=== PATIENT | female | born 1960 | race Caucasian/White ===

== ENCOUNTER 2021-09-01 12:35 | Inpatient (IN) | payer MEDICARE, MEDICAID, SELFPAY ==
[2021-09-01] VITALS (10 sets, daily range): BP systolic 96–134; BP diastolic 65–90; PULSE 80–137; RESP 13–22; TEMP 35.8–37.2; O2SAT 96–99; BMI 38.9; BMI 38.8
--- NOTE | 2021-09-01 13:07 | EKG12_ITS ---
Test Reason : HR Blood Pressure : / mmHG Vent. Rate : 089 BPM Atrial Rate : 267 BPM P-R Int : 000 ms QRS Dur : 072 ms QT Int : 346 ms P-R-T Axes : 263 046 037 degrees QTc Int : 420 ms Atrial flutter with variable A-V block Nonspecific ST and T wave abnormality Abnormal ECG Confirmed by MARISSA SAAVEDRA, DAISY ([id number]), state editor FLACO SHELDON ([id number]) on 09/04/2021 11:11:17 AM Referred By: DAMARI Confirmed By:DAISY ANN MD
--- NOTE | 2021-09-01 13:08 | EDS_ITS ---
HPI History of Present Illness Chief Complaint: Palpitations Narrative Narrative: Patient presents with palpitations that started last night, her heart rate was up to 160 at home. She has a history of atrial fibrillation although it is paroxysmal A. fib, she is not able to be anticoagulated due to gastric ulcers and severe bleeding. She is on a beta-luis miguel and has taken it every day, her heart rate has been in the 80s and 90s at baseline and just noticed that it was faster today. She has no chest pain. She has no fevers or chills. No recent cough or congestion or upper respiratory symptoms. [facility] Medical History Chronic hypoxemic respiratory failure Emphysema lung HLD (hyperlipidemia) HTN (hypertension) Iron deficiency anemia PAUL (obstructive sleep apnea) Paroxysmal atrial fibrillation Type 2 diabetes mellitus Home Medications Lactobacillus rhamnosus GG 1 cap PO DAILY 09/01/21 [History Last Taken 08/31/21] acyclovir 400 mg PO DAILY 09/01/21 [History Last Taken 09/01/21] albuterol sulfate [Ventolin HFA] 2 puff INHALATION Q6H PRN 09/01/21 [History Last Taken 09/01/21] budesonide-formoterol 2 puff INHALATION BID 09/01/21 [History Last Taken 09/01/21] buspirone 15 mg PO BID 09/01/21 [History Last Taken 09/01/21] clonazepam 1 mg PO QHS 09/01/21 [History Last Taken 08/31/21] cyclobenzaprine 10 mg PO TID PRN 09/01/21 [History Last Taken 08/31/21] duloxetine 60 mg PO QHS 09/01/21 [History Last Taken 08/31/21] empagliflozin [Jardiance] 25 mg PO DAILY 09/01/21 [History Last Taken 09/01/21] furosemide 40 mg PO DAILY 09/01/21 [History Last Taken 09/01/21] lamotrigine [Lamictal] 200 mg PO DAILY 09/01/21 [History Last Taken 08/31/21] levothyroxine 75 mcg PO DAILY 09/01/21 [History Last Taken 09/01/21] metoprolol tartrate 12.5 mg PO BID 09/01/21 [History Last Taken 09/01/21] montelukast [Singulair] 10 mg PO QHS 09/01/21 [History Last Taken 08/31/21] pantoprazole [Protonix] 40 mg PO BID 09/01/21 [History Last Taken 09/01/21] prednisone 5 mg PO DAILY 09/01/21 [History Last Taken 09/01/21] roflumilast 500 mcg PO DAILY 09/01/21 [History Last Taken 09/01/21] rosuvastatin [Crestor] 20 mg PO DAILY 09/01/21 [History Last Taken 09/01/21] tiotropium bromide [Spiriva Respimat] 2 puff INHALATION DAILY 09/01/21 [History Last Taken 09/01/21] trazodone 100 mg PO QHS 09/01/21 [History Last Taken 08/31/21] Allergy/AdvReac Type Severity Reaction Status Date / Time doxycycline Allergy Rash Verified 09/01/21 12:41 morphine Allergy Itching Verified 09/01/21 12:41 sulfamethoxazole Allergy Rash Verified 09/01/21 12:41 [From Bactrim] trimethoprim [From Bactrim] Allergy Rash Verified 09/01/21 12:41 levofloxacin [From Levaquin] AdvReac NEEDS Verified 09/01/21 12:41 FOLLOW-UP Penicillins AdvReac Vomiting Verified 09/01/21 12:41 Social History Smoking Status: Unknown if ever smoked ROS ROS ED ROS Narrative Past medical history: Reviewed Medications: Reviewed Social history: Noncontributory Review of systems: All systems negative except as indicated General: No fever Eyes: No visual changes ENT: No upper airway congestion, normal voice Neck: No neck pain Cardiovascular: Palpitations Respiratory: Chronic shortness of breath, she is on home oxygen at 2 L and has not needed to change her settings. No new respiratory symptoms. Gastrointestinal: No abdominal pain, nausea vomiting or diarrhea Genitourinary: No dysuria Musculoskeletal: Denies myalgias no difficulty with ambulation Skin: No rash Neurological: No memory loss, confusion or any focal weakness Psych: No recent behavioral changes Hematologic: No easy bleeding or easy bruising EXAM Physical Exam Narrative Exam Narrative: Physical exam General: Well nourished, Well developed, No Acute Distress Head: Normocephalic, Atraumatic Eyes: Conjunctiva not pale ENT: Moist mucous membranes. No congestion seen. Neck: Supple, Nontender, No lymphadenopathy Cardiovascular: Irregular tachycardia no obvious murmur Respiratory: Coarse bilateral breath sounds. Abdomen: Soft, Nontender, Nondistended Back: Nontender, Normal Inspection. Negative for: CVA tenderness Extremities: Nontender, slight bilateral symmetric edema. Skin: Normal color, No rash Neurological: Alert, Normal Strength, Normal Sensation Psychological: Normal affect Const Vital Signs: 09/01/21 12:37 09/01/21 14:47 Temperature 96.5 F L Temperature Source Temporal Pulse Rate 137 H 133 H Respiratory Rate 19 H 22 H Blood Pressure 134/90 H 104/71 Blood Pressure Mean 104 82 Pulse Ox 97 Oxygen Delivery Method Nasal Cannula Nasal Cannula Oxygen Flow Rate (L/min) 4 MDM MDM MDM Narrative Medical decision making narrative: Patient has an unremarkable work-up, I am reluctant to put her on anticoagulants due to her prior significant GI bleeds, regardless I tried beta-blockade but she is now tachycardic again I will place her on Cardizem and a Cardizem drip and admit her Lab Data Labs: Laboratory Results - last 24 hr 09/01/21 09/01/21 13:11 13:11 WBC 12.0 H RBC 4.52 Hgb 12.3 Hct 41.5 MCV 91.8 MCH 27.2 MCHC 29.6 L RDW Std Deviation 49.4 H RDW Coeff of Naomie 14.6 Plt Count 412 MPV 8.2 Immature Gran % (Auto) 1.200 H Neut % (Auto) 70.3 H Lymph % (Auto) 17.9 L [place] % (Auto) 6.1 Eos % (Auto) 4.0 Baso % (Auto) 0.5 Absolute Neuts (auto) 8.5 H Absolute Lymphs (auto) 2.16 Nucleated RBC % 0 Sodium 141 Potassium 3.9 Chloride 101 Carbon Dioxide 35.0 H Anion Gap 5 BUN 11 Creatinine 1.05 H Estim Creat Clear Calc 42.99 Est GFR (MDRD) Af Amer 69 Est GFR (MDRD) Non-Af 57 L BUN/Creatinine Ratio 10.5 Glucose 201 H Calcium 9.4 Troponin I High Sens 24 Radiography Diagnostic Testing: Clinical Impression(s) from Imaging Studies Chest X-Ray 09/01/21 13:23 IMPRESSION: 1.3 cm x 0.8 cm nodule in the right midlung. Multiple healed right-sided rib fractures. Electronically Signed: Lucho Morataya MD at 13:57 EDT , Service support , Discharge Plan Triage Chief Complaint: Palpitations ED Provider: Sanford Borden Dx/Rx/DC Orders Clinical Impression: A-fib Prescriptions: No Action cyclobenzaprine 10 mg Tablet 10 mg PO TID PRN (Reason: Pain) RF: 0 furosemide 40 mg Tablet 40 mg PO DAILY RF: 0 lamotrigine [Lamictal] 200 mg Tablet 200 mg PO DAILY RF: 0 prednisone 5 mg Tablet 5 mg PO DAILY RF: 0 clonazepam 1 mg Tablet 1 mg PO QHS RF: 0 acyclovir 400 mg Tablet 400 mg PO DAILY RF: 0 trazodone 100 mg Tablet 100 mg PO QHS RF: 0 pantoprazole [Protonix] 40 mg Tablet,Delayed Release (Dr/Ec) 40 mg PO BID RF: 0 montelukast [Singulair] 10 mg Tablet 10 mg PO QHS RF: 0 buspirone 15 mg Tablet 15 mg PO BID RF: 0 metoprolol tartrate 25 mg Tablet 12.5 mg PO BID RF: 0 duloxetine 60 mg Capsule,Delayed Release(Dr/Ec) 60 mg PO QHS RF: 0 budesonide-formoterol 160-4.5 mcg/actuation Hfa Aerosol Inhaler 2 puff INHALATION BID RF: 0 roflumilast 500 mcg Tablet 500 mcg PO DAILY RF: 0 Spiriva Respimat 2.5 mcg/actuation Mist 2 puff INHALATION DAILY RF: 0 Lactobacillus rhamnosus GG 15 billion cell Capsule, Sprinkle 1 cap PO DAILY RF: 0 Jardiance 25 mg Tablet 25 mg PO DAILY RF: 0 albuterol sulfate [Ventolin HFA] 90 mcg/actuation Hfa Aerosol Inhaler 2 puff INHALATION Q6H PRN (Reason: COPD) RF: 0 levothyroxine 75 mcg Tablet 75 mcg PO DAILY RF: 0 rosuvastatin [Crestor] 20 mg Tablet 20 mg PO DAILY RF: 0 Referrals: MAMIE FALL [Other] Disposition Disposition: Acute Care Hospital [facility]
[2021-09-01 13:21] LABS: Absolute Lymphocyte Count 2.16 X10^3/uL (0.83-4.51); Absolute Neutrophil Count 8.5 X10^3/uL (2.0-7.7); Basophil# 0.06 X10^3/uL; Basophil% 0.5 % (0-1); Eosinophil# 0.48 X10^3/uL; Hematocrit 41.5 % (37-47); Hemoglobin 12.3 g/dL (12.0-15.0); Lymphocyte # 2.16 X10^3/ul (0.83-4.51); Lymphocyte % 17.9 % (19-41); Mean Corp Hgb Conc 29.6 g/dL (32-36); Mean Corpuscular Hgb 27.2 pg (27.0-32.0); Mean Corpuscular Volume 91.8 fL (81-99); Mean Platelet Vol. 8.2 fl (6.2-12.0); Monocyte# 0.74 X10^3/uL; Monocyte% 6.1 % (0-10); NRBC Flagged by Analyzer 0 % (0-5); Neutrophil # 8.45 X10^3/uL (2.7-7.7); Neutrophil % 70.3 % (47-70); Platelet Count 412 K/mm3 (150-450); RBC Distribution Width CV 14.6 % (11.6-14.6); RBC Distribution Width SD 49.4 fl (35.1-43.9); Red Blood Count 4.52 M/mm3 (4.2-5.4)
--- NOTE | 2021-09-01 13:23 | RAD_ITS ---
STUDY: X-RAY CHEST REASON FOR EXAM: Female, 61 years old. Chest pain TECHNIQUE: Single AP portable view of the chest. COMPARISON: None. FINDINGS: EKG electrodes are seen. There is a 1.3 cm x 0.8 cm nodule in the right mid lung. There is no demonstrated pleural abnormality. Normal size heart. Normal mediastinum and jd. Normal visualized pulmonary arteries. Normal visualized aortic arch and descending thoracic aorta. There are degenerative changes of the visualized thoracic spine. Healed multiple right-sided rib fractures. There is no demonstrated abnormality of the visualized soft tissue structures of the upper abdomen. RAD/Chest 1 View (Portable) IMPRESSION: 1.3 cm x 0.8 cm nodule in the right midlung. Multiple healed right-sided rib fractures. Electronically Signed: Lucho Morataya MD at 13:57 EDT , Service support ,
[2021-09-01] MEDS: Metoprolol Tartrate 5 MG/5 ML Vial IV ×3 (13:24→13:40)
[2021-09-01 13:39] LABS: Anion Gap 5 (5-15); BUN 11 mg/dL (7-18); BUN/Creat Ratio 10.5 RATIO (10-20); Calcium,Total 9.4 mg/dL (8.5-10.1); Chloride 101 mmol/L (98-107); Creatinine, Serum 1.05 mg/dL (0.55-1.02); EST Glomerular Filtration Rate 57 mL/min (>60); Est Glom Filt Rate - Afr Amer 69 mL/min (>60); Estimated Creatinine Clearance 42.99 ml/min; Glucose 201 mg/dL (74-106); Potassium 3.9 mmol/L (3.5-5.1); Sodium Level 141 mmol/L (136-145); Troponin-I HS 24 pg/mL (3.0-54.0)
--- NOTE | 2021-09-01 13:47 | ED.RN ---
1324: Lopressor 5mg ivp per order. 122/71, 1136 a-fib rvr 1332: Lopressor 5mg ivp per [place], 104/77 112, a-fib rvr 1340: Lopressor 5mg ivp per order, 120/68, 109, a-fib rvr 1345: 101/66, 95. 16; a-fib
--- NOTE | 2021-09-01 15:13 | HP.PCM.HOS_ITS ---
HPI - General General Date of Admission: 09/01/21 Date of Service: 09/01/21 Chief Complaint: Palpitations HPI Narrative The patient is a 61 y/o F w/ PMHx: Hypothyroidism, Anxiety and Depression, GERD, PAF, HTN, HLD, Chronic hypoxic respiratory failure (2L NC) w/ Chronic COPD, Diabetes mellitus type II, Chronic anemia/Fe Deficiency anemia, PAUL who presents to the [facility] ED on 09/01/21 with history of onset palpitations, sensation of increased heart rate starting the evening prior unfortunately unable to be anticoagulated secondary to history of significant GI bleed with gastric ulcers in the past, compliant with her metoprolol with onset concurrent generalized chest heaviness and sensation of dyspnea above her usual; however, when she she has checked her pulse oximeter and has been in her normal range and she is not required any increase in her oxygen chronic usage. Given it was not improving with her rate at home up to 160 she presented to ED for evaluation. Work-up in the ED included T 96.5, heart rate 137, BP 134/90, respiratory rate 19, 97% on room air, CBC with WBC 12, hemoglobin 12.3, platelet 412 with increased immature granulocytes with left shift, BMP with carbon dioxide 35, BUN/111/1.05, glucose 201, troponin high-sensitivity 24, chest x-ray 1.3 cm x 0.8 cm nodule in the right midlung, multiple healed right-sided rib fractures, EKG atrial fibrillation with RVR. Patient administered Cardizem bolus eventually placed on Cardizem drip. [facility] Medical History (Updated 09/01/21 @ 15:[address] Radha Noel MD) Chronic hypoxemic respiratory failure Emphysema lung History of arteriovenous malformation (AVM) HLD (hyperlipidemia) HTN (hypertension) Iron deficiency anemia PAUL (obstructive sleep apnea) Paroxysmal atrial fibrillation Type 2 diabetes mellitus Home Medications Lactobacillus rhamnosus GG 1 cap PO DAILY 09/01/21 [History Last Taken 08/31/21] acyclovir 400 mg PO DAILY 09/01/21 [History Last Taken 09/01/21] albuterol sulfate [Ventolin HFA] 2 puff INHALATION Q6H PRN 09/01/21 [History Last Taken 09/01/21] budesonide-formoterol 2 puff INHALATION BID 09/01/21 [History Last Taken 09/01/21] buspirone 15 mg PO BID 09/01/21 [History Last Taken 09/01/21] clonazepam 1 mg PO QHS 09/01/21 [History Last Taken 08/31/21] cyclobenzaprine 10 mg PO TID PRN 09/01/21 [History Last Taken 08/31/21] duloxetine 60 mg PO QHS 09/01/21 [History Last Taken 08/31/21] empagliflozin [Jardiance] 25 mg PO DAILY 09/01/21 [History Last Taken 09/01/21] furosemide 40 mg PO DAILY 09/01/21 [History Last Taken 09/01/21] lamotrigine [Lamictal] 200 mg PO DAILY 09/01/21 [History Last Taken 08/31/21] levothyroxine 75 mcg PO DAILY 09/01/21 [History Last Taken 09/01/21] metoprolol tartrate 12.5 mg PO BID 09/01/21 [History Last Taken 09/01/21] montelukast [Singulair] 10 mg PO QHS 09/01/21 [History Last Taken 08/31/21] pantoprazole [Protonix] 40 mg PO BID 09/01/21 [History Last Taken 09/01/21] prednisone 5 mg PO DAILY 09/01/21 [History Last Taken 09/01/21] roflumilast 500 mcg PO DAILY 09/01/21 [History Last Taken 09/01/21] rosuvastatin [Crestor] 20 mg PO DAILY 09/01/21 [History Last Taken 09/01/21] tiotropium bromide [Spiriva Respimat] 2 puff INHALATION DAILY 09/01/21 [History Last Taken 09/01/21] trazodone 100 mg PO QHS 09/01/21 [History Last Taken 08/31/21] Allergy/AdvReac Type Severity Reaction Status Date / Time doxycycline Allergy Rash Verified 09/01/21 12:41 morphine Allergy Itching Verified 09/01/21 12:41 sulfamethoxazole Allergy Rash Verified 09/01/21 12:41 [From Bactrim] trimethoprim [From Bactrim] Allergy Rash Verified 09/01/21 12:41 levofloxacin [From Levaquin] AdvReac NEEDS Verified 09/01/21 12:41 FOLLOW-UP Penicillins AdvReac Vomiting Verified 09/01/21 12:41 Family History (Updated 09/01/21 @ 15:[address] Radha Noel MD) Mother Heart disease CVA (cerebral vascular accident) Parkinsons disease Father CAD (coronary artery disease) Myocardial infarction COPD (chronic obstructive pulmonary disease) Surgical History (Updated 09/01/21 @ 15:[address] Radha Noel MD) S/P bilateral foot surgery S/P S/P hysterectomy S/P nasal surgery S/P tonsillectomy and adenoidectomy Social History (Updated 09/01/21 @ 15:[address] Radha Noel MD) household members: significant other Smoking Status: Former smoker how long ago did patient quit smoking: Quit 6-7 yrs prior, smoked 2.5 ppd x 30 years. alcohol intake: never substance use type: other details: Uses medical cannabis edibles. ROS ROS Narrative Admission Review of Systems: CONSTITUTIONAL: No weight loss, fever, chills, + weakness or fatigue. HEENT: Eyes: No visual loss, blurred vision, double vision or yellow sclerae. Ears, Nose, Throat: No hearing loss, sneezing, congestion, runny nose or sore throat. SKIN: No rash or itching, lesions, wounds. CARDIOVASCULAR: + Chest heaviness, No edema, orthopnea, syncopal events. RESPIRATORY: + Above baseline shortness of breath, chronic unchanged cough, No marked sputum, wheezing, hemoptysis. GASTROINTESTINAL: No anorexia, nausea, vomiting or diarrhea, abdominal pain, melena, BRBPR. GENITOURINARY: No dysuria, frequency, urgency or retention. NEUROLOGICAL: No headache, dizziness, syncope, paralysis, ataxia, numbness or tingling in the extremities, focal weakness, change in bowel or bladder control, seizure. MUSCULOSKELETAL: + muscle, back pain, joint pain or stiffness. HEMATOLOGIC: + anemia, bleeding or bruising. LYMPHATICS: No enlarged nodes. No history of splenectomy. PSYCHIATRIC: + history of depression or anxiety. ENDOCRINOLOGIC: No reports of sweating, cold or heat intolerance. No polyuria or polydipsia. ALLERGIES: + history of asthma, hives, eczema or rhinitis. Vital Signs Vital Signs Vital Signs: 09/01/21 12:37 09/01/21 14:47 Temperature 96.5 F L Temperature Source Temporal Pulse Rate 137 H 133 H Respiratory Rate 19 H 22 H Blood Pressure 134/90 H 104/71 Blood Pressure Mean 104 82 Pulse Ox 97 Oxygen Delivery Method Nasal Cannula Nasal Cannula Oxygen Flow Rate (L/min) 4 Weight Weight: 206 lb Body Mass Index (BMI) 38.9 Physical Exam Narrative Physical Examination: General: Awake, alert, oriented x 3 and cooperative, seated upright in the ED bed in no apparent distress, still reporting some mild dyspnea sensation and chest heaviness however rate is currently up, awaiting for Cardizem drip initiation. Skin: Normal color, normal turgor, no icterus, no cyanosis. HEENT: AT/NC, EOMI, PERRLA, mildly dry MM, no carotid bruits or JVD noted; however, thickened neck makes examination difficult. Lungs: Usually diminished, greater bases, no evidence of any respiratory distress, no rales, ronchi or wheezing. Heart: Irregular irregular; no gallop, rub audible. Abdomen: Soft, obese, NTTP, ND, distant mildly hyperactive BS, no obvious ev idence of HSM; however, habitus makes examination difficult. Extremities: No cyanosis, clubbing, or edema. Neurological: Patient awake, alert, oriented as noted, cognitive function intact; pupils equally reactive to light and accommodation, cranial nerves II- XII grossly normal, moving all 4 extremities, no focal deficits, strength moderately global decrease secondary to acute presentation. Psychiatric: Affect appears mildly fatigued, no acute evidence of depressive or anxiety feelings. Results Lab / Micro Data Result Diagrams: 09/01/21 13:11 09/01/21 13:11 Labs: Laboratory Results - last 24 hr 09/01/21 13:11: WBC 12.0 H, RBC 4.52, Hgb 12.3, Hct 41.5, MCV 91.8, MCH 27.2, MCHC 29.6 L, RDW Std Deviation 49.4 H, RDW Coeff of Naomie 14.6, Plt Count 412, MPV 8.2, Immature Gran % (Auto) 1.200 H, Neut % (Auto) 70.3 H, Lymph % (Auto) 17.9 L , [place] % (Auto) 6.1, Eos % (Auto) 4.0, Baso % (Auto) 0.5, Absolute Neuts (auto) 8.5 H, Absolute Lymphs (auto) 2.16, Nucleated RBC % 0 09/01/21 13:11: Sodium 141, Potassium 3.9, Chloride 101, Carbon Dioxide 35.0 H, Anion Gap 5, BUN 11, Creatinine 1.05 H, Estim Creat Clear Calc 42.99, Est GFR (MDRD) Af Amer 69, Est GFR (MDRD) Non-Af 57 L, BUN/Creatinine Ratio 10.5, Glucose 201 H, Calcium 9.4, Troponin I High Sens 24 Radiology Impression Chest X-Ray 09/01/21 13:23 IMPRESSION: 1.3 cm x 0.8 cm nodule in the right midlung. Multiple healed right-sided rib fractures. Electronically Signed: Lucho Morataya MD at 13:57 EDT , Service support , Assessment & Plan Assessment/Plan (1) Atrial fibrillation with RVR: PLAN: The patient is a 61 y/o F w/ PMHx: Hypothyroidism, Anxiety and Depression, GERD, PAF, HTN, HLD, Chronic hypoxic respiratory failure (2L NC) w/ Chronic COPD, Diabetes mellitus type II, Chronic anemia/Fe Deficiency anemia, PAUL, Former tobacco cessation who presents to the [facility] ED on 09/01/21 with history of onset palpitations, sensation of increased heart rate starting the evening prior unfortunately unable to be anticoagulated secondary to history of significant GI bleed with gastric ulcers in the past, compliant with her metoprolol with associated chest heaviness and dyspnea. 1. Paroxsymal atrial fibrillation with RVR w/ chest heaviness, dyspnea sensation: EKG in ED w/ atrial fibrillation w/ RVR. Will admit to PCU, maintain on telemetry, obtain cardiac enzyme serial set, obtain magnesium level, obtain ECHO, obtain TSH level. Patient has been unable to be anticoagulated in the past secondary to severe GI bleeding with gastric ulcer history. We will continue Cardizem drip with increase of her metoprolol as currently low dose, al though may need to adjust it further. Pending patient response may need to consider cardiology involvement. 2. Incidental right mid lung nodule: Chest x-ray with 1.3 cm x 0.8 cm nodule right midlung, will need follow-up imaging given underlying history. 3. Chronic COPD with chronic hypoxic respiratory failure (2L NC) with allergic rhinitis: Will maintain on home oxygen supplementation, will continue home inhaler, PRN albuterol, HOB, IS parameters, continue home Singulair regimen as well as Roflumilast. 4. Diabetes mellitus type II: Hold oral home regimen, continue home insulin regimen, ADA diet, accu checks w/ ISS. 5. Hypertension: Continue home regimen including Lasix, metoprolol with hold parameters, PRN hydralazine. 6. Hyperlipidemia: We will continue patient on statin therapy. 7. Anxiety and depression/possible bipolar disorder: We will continue patient home clonazepam, duloxetine, Lamictal. 8. Hypothyroidism: Continue home synthroid regimen, TSH and FT4 pending. 9. 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 10. Chronic anemia/Fe Deficiency anemia: Admission Hgb 12.3, no comparison level available, not on supplementation from current list, trend. 11. PAUL: Unable to tolerate, hasnt used for years. 12. Former tobacco use: Encourage continued tobacco cessation. 13. DVT prophylaxis: SCDs, given severity of GI bleed history, current on chronic steroids with GERD w/ gastric ulcers will defer chemoprophylaxis. Charges/Coding Visit Charges Inpatient E&M: 52993 Init Hosp L3
--- NOTE | 2021-09-01 15:47 | ED.RN ---
cardizem bolus and drip0 held per dr. jules for heart rate in the 90's and bp of 94/76.
--- NOTE | 2021-09-01 16:47 | ECHOCS_ITS ---
Reason For Study: PAF Procedure This was a 2D Doppler, Color Flow transthoracic echocardiogram. The study was technically difficult. Contrast injection was performed. Exam performed portable in patient room. Left Ventricle Based upon the 2D echocardiographic and contrast enhanced images obtained there appears to be grossly normal left ventricular size, wall motion, and systolic function. The estimated ejection fraction is 55 %. No evidence for diastolic dysfunction. Right Ventricle Normal RV size. Normal systolic function. Atria Normal left atrium. Normal right atrium. No doppler evidence for ASD. Mitral Valve There is no mitral annular calcification. Normal mitral valve. Trivial mitral valve insufficiency. Tricuspid Valve Normal tricuspid valve. Mild tricuspid valve insufficiency. Right ventricular systolic pressure estimated to be 28 mmHg. Aortic Valve Trisinus/trileaflet aortic valve. Normal aortic valve. Pulmonic Valve The pulmonic valve is not well visualized. Great Vessels Normal sized aortic root. Pericardium/Pleural No pericardial effusion. Medication Diluted definity 5ml given slow IV push to enhance endocardial definition. MMode/2D Measurements & Calculations LVIDd: 4.9 cm IVSd: 0.89 cm Ao root diam: 3.0 cm LVIDs: 3.6 cm LVPWd: 0.86 cm RVDd: 3.3 cm FS: 26.6 % LAV(MOD-bp): 45.8 ml LVAd ap4: 29.1 cm2 SV(MOD-sp4): 60.9 ml LAV(MOD-bp) Indexed: 23.9 ml/m2 LVLd ap4: 7.5 cm LAV(MOD-sp2): 48.3 ml EDV(MOD-sp4): 92.7 ml LAV(MOD-sp4): 39.4 ml EDV(sp4-el): 95.7 ml LVAs ap4: 15.0 cm2 LVLs ap4: 6.0 cm ESV(MOD-sp4): 31.8 ml ESV(sp4-el): 31.7 ml EF(MOD-sp4): 65.7 % EF(sp4-el): 66.9 % SV(sp4-el): 64.0 ml LA A4 area: 16.3 cm2 LA dimension(2D): 4.0 cm RA A4 area: 18.8 cm2 Doppler Measurements & Calculations MV E max eddie: 62.5 cm/sec Lat Peak E' Eddie: 9.0 cm/sec Med Peak E' Eddie: 6.4 cm/sec MV A max eddie: 37.8 cm/sec E/E' lat: 6.9 E/E' med: 9.8 MV E/A: 1.7 Ao V2 max: 136.6 cm/sec LV V1 max: 89.9 cm/sec PA V2 max: 80.0 cm/sec Ao max P.5 mmHg LV V1 max P.2 mmHg Ao V2 mean: 96.2 cm/sec Ao mean P.0 mmHg Ao V2 VTI: 26.1 cm TR max eddie: 248.5 cm/sec TR max P.7 mmHg ECHO/Echo Complete W/ Contrast Interpretation Summary The study was technically difficult. Contrast injection was performed. Based upon the 2D echocardiographic and contrast enhanced images obtained there appears to be grossly normal left ventricular size, wall motion, and systolic function. The estimated ejection fraction is 55 %. Trivial mitral valve insufficiency. Mild tricuspid valve insufficiency. Right ventricular systolic pressure estimated to be 28 mmHg. No evidence for diastolic dysfunction. Ordering Physician: Radha Noel Performed By: Daniela Morejon, ELIAS, RVT
[2021-09-01 16:56] LABS: Magnesium 2.5 mg/dL (1.6-2.6)
[2021-09-01 17:25] LABS: Bedside Glucose 116 mg/dL (70-110)
--- NOTE | 2021-09-01 17:26 | EKG12_ITS ---
Test Reason : WORK UP Blood Pressure : / mmHG Vent. Rate : 087 BPM Atrial Rate : 278 BPM P-R Int : 000 ms QRS Dur : 076 ms QT Int : 404 ms P-R-T Axes : 000 055 253 degrees QTc Int : 486 ms Atrial flutter with variable A-V block Nonspecific ST and T wave abnormality Prolonged QT Abnormal ECG Confirmed by MARISSA SAAVEDRA, DAISY ([id number]), features editor FLACO SHELDON ([id number]) on 09/04/2021 11:13:25 AM Referred By: GOSIA Confirmed By:DAISY ANN MD
[2021-09-01] MEDS: CLARIFY ORDER NOTE (17:57)
[2021-09-01] MEDS: Metoprolol Tartrate 25 MG Tablet PO ×2 (17:57→22:14)
--- NOTE | 2021-09-01 18:06 | EKG12_ITS ---
Test Reason : RHYTHM CHANGE Blood Pressure : / mmHG Vent. Rate : 091 BPM Atrial Rate : 091 BPM P-R Int : 110 ms QRS Dur : 080 ms QT Int : 340 ms P-R-T Axes : 059 059 073 degrees QTc Int : 418 ms Sinus rhythm with short WA Nonspecific ST and T wave abnormality Abnormal ECG Confirmed by MARISSA SAAVEDRA, DAISY ([id number]), fashion editor FLACO SHELDON ([id number]) on 09/05/2021 8:54:37 AM Referred By: CHRIS Confirmed By:DAISY ANN MD
[2021-09-01 18:21] LABS: Troponin-I HS 25 pg/mL (3.0-54.0)
[2021-09-01 21:54] LABS: Troponin-I HS 20 pg/mL (3.0-54.0)
[2021-09-01] MEDS: traZODone 100 MG Tablet PO (22:04)
[2021-09-01] MEDS: busPIRone 15 MG TABLET PO (22:05)
[2021-09-01] MEDS: DULoxetine Hcl 60 MG Capsule PO (22:05)
[2021-09-01] MEDS: Atorvastatin Calcium 40 MG Tablet PO (22:11)
[2021-09-01] MEDS: Montelukast 10 MG Tablet PO (22:15)
[2021-09-01] MEDS: Pantoprazole Sodium 40 MG Tablet PO (22:15)
[2021-09-01] MEDS: clonazePAM 1 MG Tablet PO (22:45)
[2021-09-01] MEDS: cycloBENZAPRine HCl 10 MG Tablet PO (23:24)
[2021-09-01 23:26] LABS: Bedside Glucose 111 mg/dL (70-110)
[2021-09-02] VITALS (9 sets, daily range): BP systolic 96–121; BP diastolic 64–74; PULSE 80–108; RESP 18–20; TEMP 36–37.1; O2SAT 96–97
[2021-09-02] MEDS: Levothyroxine 75 MCG Tablet PO (05:49)
--- NOTE | 2021-09-02 05:55 | EKG12_ITS ---
Test Reason : AM EKG Blood Pressure : / mmHG Vent. Rate : 082 BPM Atrial Rate : 082 BPM P-R Int : 110 ms QRS Dur : 086 ms QT Int : 364 ms P-R-T Axes : 045 053 074 degrees QTc Int : 425 ms Sinus rhythm with short [place] Nonspecific ST and T wave abnormality Abnormal ECG Confirmed by MARISSA SAAVEDRA, DAISY ([id number]), make up editor FLACO SHELDON ([id number]) on 09/05/2021 8:59:50 AM Referred By: DR PEREZ Confirmed By:DAISY ANN MD
--- NOTE | 2021-09-02 06:23 | NURSING ---
PT EXPRESSES CONCERN RE: MEDICATION DOSING/TIMING. THIS RN REVEIWED HOME MED LIST FROM [facility] WITH PT. PT POINTS OUT INACCURACIES IN HER OWN LIST. SHE THEN SHOWED THIS RN 2 ADDITIONAL MEDICATION LISTS THAT HAD DIFFERENT DOSES OF SEVERAL MEDICATIONS. WHEN ASKED WHAT HER CURRENT DOSES WERE, PT STATED SHE IS UNSURE, BUT SHE DOES KNOW THE MOST RECENT LIST SHE PROVIDED FROM [facility] IS INCORRECT. WILL NEED TO CALL [facility] WHEN THEY OPEN TO OBTAIN CURRENT AND ACCURATE LIST OF MEDICATIONS. INFO WILL BE PROVIDED TO ONCOMING SHIFT IN WRITTEN AND VERBAL HANDOFF.
[2021-09-02 06:50] LABS: Bedside Glucose 146 mg/dL (70-110)
[2021-09-02 07:52] LABS: Absolute Lymphocyte Count 3.19 X10^3/uL (0.83-4.51); Absolute Neutrophil Count 6.4 X10^3/uL (2.0-7.7); Basophil# 0.07 X10^3/uL; Basophil% 0.6 % (0-1); Eosinophil# 0.55 X10^3/uL; Eosinophils% 4.9 % (0-5); Hematocrit 36.1 % (37-47); Hemoglobin 11.1 g/dL (12.0-15.0); Lymphocyte # 3.19 X10^3/ul (0.83-4.51); Lymphocyte % 28.2 % (19-41); Mean Corp Hgb Conc 30.7 g/dL (32-36); Mean Corpuscular Hgb 28.1 pg (27.0-32.0); Mean Corpuscular Volume 91.4 fL (81-99); Mean Platelet Vol. 8.8 fl (6.2-12.0); Monocyte# 1.02 X10^3/uL; NRBC Flagged by Analyzer 0 % (0-5); Neutrophil # 6.38 X10^3/uL (2.7-7.7); Neutrophil % 56.5 % (47-70); Platelet Count 374 K/mm3 (150-450); RBC Distribution Width CV 14.6 % (11.6-14.6); RBC Distribution Width SD 49.2 fl (35.1-43.9); Red Blood Count 3.95 M/mm3 (4.2-5.4); White Blood Count 11.3 K/mm3 (4.4-11.0)
[2021-09-02 08:29] LABS: ALB/GLOB Ratio 0.8 RATIO (0.9-2.4); AST(SGOT) 14 U/L (15-37); Alanine Aminotransfer ALT/SGPT 24 U/L (13-56); Albumin, Serum 3.1 g/dL (3.2-5.0); Alkaline Phosphatase 80 U/L (45-117); Anion Gap 7 (5-15); BUN 14 mg/dL (7-18); BUN/Creat Ratio 17.9 RATIO (10-20); Calcium,Total 9.1 mg/dL (8.5-10.1); Chloride 101 mmol/L (98-107); Creatinine, Serum 0.78 mg/dL (0.55-1.02); EST Glomerular Filtration Rate 80 mL/min (>60); Est Glom Filt Rate - Afr Amer 96 mL/min (>60); Estimated Creatinine Clearance 57.88 ml/min; Globulin 3.7 g/dL (2.2-4.2); Glucose 120 mg/dL (74-106); Potassium 3.2 mmol/L (3.5-5.1); Protein, Total 6.8 g/dL (6.4-8.2); Sodium Level 141 mmol/L (136-145); T4 Free Direct 1.12 ng/dL (0.76-1.46); Thyroid Stim Hormone (TSH) 1.45 uIU/mL (0.358-3.74)
[2021-09-02] MEDS: Pantoprazole Sodium 40 MG Tablet PO (09:00)
[2021-09-02] MEDS: predniSONE 5 MG Tablet PO (09:00)
[2021-09-02] MEDS: Acyclovir 200 MG Capsule 400 MG PO (09:00)
[2021-09-02] MEDS: busPIRone 15 MG TABLET PO (09:00)
[2021-09-02] MEDS: Metoprolol Tartrate 25 MG Tablet PO (09:01)
[2021-09-02] MEDS: Furosemide 40 MG Tablet PO (09:01)
[2021-09-02] MEDS: lamoTRIgine 100 MG Tablet 200 MG PO (09:04)
[2021-09-02] MEDS: Potassium Chloride Oral Tablet 20 MEQ 40 MEQ PO (10:38)
[2021-09-02] MEDS: cycloBENZAPRine HCl 10 MG Tablet PO (10:41)
[2021-09-02] MEDS: Insulin Lispro 100 UNIT/ML INSULN.PEN SC ×2 (11:22→16:18)
--- NOTE | 2021-09-02 11:35 | PCM.PN.HOSP ---
Subjective Subjective Patient seen and examined. She felt weak and complained of shortness of breath and wheezing due to asthma. She denied palpitations. Review of systems is otherwise negative. She has remained hemodynamically stable and potassium is 3.2. She was on 3 L of oxygen at home and ask for oxygen to be turned up. She is usually on 5 L of oxygen at home so oxygen set up to 5 L. Objective Data Objective Data Vital Signs: Vital Signs Temp Pulse Resp BP Pulse Ox 97.4 F L 80 18 121/65 H 96 09/02/21 08:52 09/02/21 09:01 09/02/21 08:52 09/02/21 08:52 09/02/21 08:52 Oxygen Flow Rate (L/min) 3 Oxygen Delivery Method Nasal Cannula Weight: 206 lb 12.697 oz Body Mass Index (BMI) 38.8 Intake & Output: Intake and Output for Last 24 Hours 08/31/21 09/01/21 09/02/21 23:59 23:59 23:59 Output Total 2 / 2 Balance -2 / -2 Lab / Micro Data Result Diagrams: 09/02/21 06:25 09/02/21 06:25 Labs: Laboratory Results - last 24 hr 09/01/21 13:11: WBC 12.0 H, RBC 4.52, Hgb 12.3, Hct 41.5, MCV 91.8, MCH 27.2, MCHC 29.6 L, RDW Std Deviation 49.4 H, RDW Coeff of Naomie 14.6, Plt Count 412, MPV 8.2, Immature Gran % (Auto) 1.200 H, Neut % (Auto) 70.3 H, Lymph % (Auto) 17.9 L, [place] % (Auto) 6.1, Eos % (Auto) 4.0, Baso % (Auto) 0.5, Absolute Neuts (auto) 8.5 H, Absolute Lymphs (auto) 2.16, Nucleated RBC % 0 09/01/21 13:11: Sodium 141, Potassium 3.9, Chloride 101, Carbon Dioxide 35.0 H, Anion Gap 5, BUN 11, Creatinine 1.05 H, Estim Creat Clear Calc 42.99, Est GFR (MDRD) Af Amer 69, Est GFR (MDRD) Non-Af 57 L, BUN/Creatinine Ratio 10.5, Glucose 201 H, Calcium 9.4, Troponin I High Sens 24 09/01/21 13:11: Magnesium 2.5 09/01/21 17:20: POC Glucose 116 H 09/01/21 17:40: Troponin I High Sens 25 09/01/21 21:21: Troponin I High Sens 20 09/01/21 22:19: POC Glucose 111 H 09/02/21 06:25: WBC 11.3 H, RBC 3.95 L, Hgb 11.1 L, Hct 36.1 L, MCV 91.4, MCH 28.1, MCHC 30.7 L, RDW Std Deviation 49.2 H, RDW Coeff of Naomie 14.6, Plt Count 374, MPV 8.8, Immature Gran % (Auto) 0.800, Neut % (Auto) 56.5, Lymph % (Auto) 28.2, [place] % (Auto) 9.0, Eos % (Auto) 4.9, Baso % (Auto) 0.6, Absolute Neuts (auto) 6.4, Absolute Lymphs (auto) 3.19, Nucleated RBC % 0 09/02/21 06:25: Sodium 141, Potassium 3.2 L, Chloride 101, Carbon Dioxide 33.0 H, Anion Gap 7, BUN 14, Creatinine 0.78, Estim Creat Clear Calc 57.88, Est GFR (MDRD) Af Amer 96, Est GFR (MDRD) Non-Af 80, BUN/Creatinine Ratio 17.9, Glucose 120 H, Calcium 9.1, Total Bilirubin 0.30, AST 14 L, ALT 24, Alkaline Phosphatase 80, Total Protein 6.8, Albumin 3.1 L, Globulin 3.7, Albumin/Globulin Ratio 0.8 L, TSH 1.45, Free T4 1.12 09/02/21 06:44: POC Glucose 146 H Micro: Microbiology 09/01/21 15:50 Nasal Secretion SARS-CoV-2 Antigen (Rapid) - Final Radiography Diagnostic Testing: Radiology Impression Chest X-Ray 09/01/21 13:23 IMPRESSION: 1.3 cm x 0.8 cm nodule in the right midlung. Multiple healed right-sided rib fractures. Electronically Signed: Lucho Morataya MD at 13:57 EDT , Service support , Physical Exam Const alert and oriented x3 Orientation / Consciousness: lethargic Exam Limitations: no limitations Nutritional Appearance: obese HEENT head/scalp atraumatic and moist oral mucous membranes Head and Scalp: normocephalic Eyes PERRL, EOMs intact bilaterally and conjunctivae normal Neck no lymphadenopathy Resp Resp Narrative: Lung sounds very tight. No wheezing. On 5 L of oxygen. GI normal to inspection, nondistended, normoactive bowel sounds, soft to palpation, non-tender and non-distended Extremity normal to inspection, full ROM and no clubbing, cyanosis or edema Peripheral Pulses: Yes pulses 2+ throughout Skin no rashes or lesions noted Neuro oriented x3, CN's II-XII intact bilaterally and moves all extremities Sensorium / Orientation: awake and alert Psych affect normal Assessment & Plan Assessment/Plan (1) Atrial fibrillation with RVR: (2) Asthma exacerbation: PLAN: #Afib with RVR didnt require inititation of any drip. her metoprolol drip was increased cannot be anticoagulated due to history of GI bleed. monitor HR #Acute asthma exacerbation Complains of wheezing in her lungs feeling tight. Start patient on IV Solu-Medrol. Breathing treatments of bronchodilators. Titrate oxygen to maintain saturation above 90%. Also on Singulair Roflumilast so I do think patient also has COPD. #Chronic hypoxic respiratory failure due to asthma and COPD: States he is on 5 L of oxygen through H&P noted she wears 2 L of oxygen at home. On Roflumilast and Singulair #Type 2 diabetes mellitus. Insulin sliding scale. Checks AC at bedtime. #Hypertension: On metoprolol and Lasix #Hyperlipidemia: On statin #Anxiety and depression: On clonazepam, duloxetine and Lamictal #Hypothyroidism: On Synthroid #GERD and history of gastric ulcers On PPI DVT prophylaxis: SCDs Charges/Coding Visit Charges Inpatient E&M: 70697 [facility] Hosp L3
[2021-09-02] MEDS: 0.9% Saline Lock 10 ML Syringe IV ×2 (12:56→17:05)
[2021-09-02 13:16] LABS: Bedside Glucose 163 mg/dL (70-110)
[2021-09-02 16:26] LABS: Bedside Glucose 183 mg/dL (70-110)
--- NOTE | 2021-09-02 17:00 | CASEMGMT ---
JOHNNA LOPEZ SENIOR SSIS DEVELOPER CM to room to meet with patient for initial transition planning/care coordination assessment. JOHNNA LOPEZ introduced self and role at [facility]. Pt voices understanding and consents to assessment at this time. Pt sitting up in bed in no distress at this time. Pt is A/O at this time and answers all questions appropriately. Care providers, pharmacy, and demographics verified/updated at this time. PCP: Dr Jerald Johns Specialists: All of the following [facility] specialists: Dr Dominguez-cardiology in [place]. Dr Harris-pulmonology in [place]. Dr Johnson-hepatology @ [facility]. Preferred Pharmacy: [facility] Insurance: [employer] [employer], [employer] Prescription Benefit: Yes Living Will/HPOA: does not have LW or HCPOA . She states would like her friend, Jayson Banuelos, to be her HPOA. Interested in more information and would like to talk with SW to complete paperwork. Provided information on advanced directives and given Social Service rac card with number to call if chooses in the future to utilize [facility] social work for advanced directive completion if SW unable to meet w/her prior to discharge. LNOK: Pt wishes for only her friend, Jayson, to be listed on her demographics at this time. Pt has 3 adult children. Sister: Emiliana Dorado (lives in [place], [place]) and 2 brothers. Pt states Jayson would be able to reach her sister, Emiliana, if needed. Living Arrangements: Pt lives w/her friend, Jayson. She states he is also her landlord and they have been friends for 20 + years. They live in a one-story home w/basement. Pt does not go to the basement. 2 steps to enter home. Pt independent w/ADL's. Jayson/pt share home mgmt tasks. Jayson does grocery shopping. Transportation: Jayson. Pt does not drive. Pt denies transportation concerns. DME: has the following DME: shower chair, BSC, functioning glucometer w/supplies, W/C for long distances, nebulizer. She uses no DME to ambulate short distances. Has O2 thru [employer]. Pt states she has had oxygen for years. She states uses 4-5 L/M d/t the long extension tubing (50 ft) or she doesn't feel like she is getting enough oxygen. Pt is unsure how what her current home O2 orders are. Pt has a concentrator and portable O2 tanks and has one @ [facility] to go home on. Pt does not have a BIPAP or CPAP. Pt states no need for further DME at this time. HHC/SNF: No hx of either. Pt wishes to return home and states has no concerns with going home at time of discharge. She denies need for HHC. Pt voices no further concerns/needs at this time. Advised pt to ask for CM if any further questions/concerns/needs arise. Voices understanding. PLAN: Home w/support of friend and discharge plans in place. CM or nursing to follow re: possible need of increase in Home O2. If pt discharges home over the w/e, nursing to do ambulatory pulse ox starting on 2 l/m. If pt requires more than 2l/m O2 at rest or w/exertion, new O2 order to be faxed to [facility]. If pt not discharged home over the w/e, CM to f/u w/[facility] when office is open on Saturday to confirm pt's current Home O2 orders. Laura BSN RN CM
--- NOTE | 2021-09-02 19:40 | CASEMGMT ---
SOCIAL WORK Referral Source: CM Reason for Consult: Advanced Directives Met with patient and friend in room. Introduced role and reason for referral. Patient reports does not wish to complete Advanced Directives at this time, but requested copy of forms. Blank forms provided. Patient reports will complete at a later date. Brandon Schuster, IMPLEMENTATION PROJECT MANAGER, CONTROL PANEL BUILDER
--- NOTE | 2021-09-02 20:34 | PCM.HOSP.N ---
Hospitalist Note Notified by nursing that patient was having headache and was requesting Tylenol 3. I told there is no indication for products and headaches. She informed the patient is too demented to speak with me. Patient stated she has pain from head to toe. She has a medical marijuana card which I verified on her OARRS report shortly after going into her room patient immediately began berating me about statement that are no indications pancreatic some headaches. Informed her there is no evidence to support the use of narcotics and headaches in she then commenced to call me an asshole. She was asking if she can be put on Advil. The nurse was present at this time which asked nurse if the patient was on any blood thinners. Patient became very irate at that saying that we should know everything that she is on.*If she was on blood thinners patient directly said that she is not on Eliquis because diverticulitis gastritis. Informed her that the Eliquis would not cause but asked specifically she had a history of bleeding with anticoagulation. She is here for A. fib. She did not answer but stated that she is going to be leaving the hospital. Said that she is done. Clarified with her if she has suicidal ideation which he said was Bao. She said she is going to be leaving AGAINST MEDICAL ADVICE. I told her the risk of her leaving as much advice possible heart attack and . States that she will sign the forms presented to her.
--- NOTE | 2021-09-02 20:45 | NURSING ---
Pt requesting Tylenol3 for headache. When this RN spoke with he denied giving codine for headache. Pt then states she also takes for body aches and would like to speak with dr. Dr De Leon went to patients room. patient stated she was leaving, DR informed of risks. Patient requested AMA forms.
--- NOTE | 2021-09-02 22:44 | DS.PCM_ITS ---
Providers Date of Admission: 09/01/21 Primary Care Physician: MAMIE FALL Reason For Visit: PAF W/RVR Diagnosis Discharge Diagnosis (1) Atrial fibrillation with RVR: Status: Acute Code(s): I48.91 - Unspecified atrial fibrillation (2) Asthma exacerbation: Status: Acute Code(s): J45.901 - Unspecified asthma with (acute) exacerbation Medications at Discharge Home Medications Jardiance 25 mg PO DAILY 09/01/21 Lactobacillus rhamnosus GG 1 cap PO DAILY 09/01/21 Spiriva Respimat 2 puff INHALATION DAILY 09/01/21 acyclovir 400 mg PO DAILY 09/01/21 albuterol sulfate [Ventolin HFA] 2 puff INHALATION Q6H PRN 09/01/21 budesonide-formoterol 2 puff INHALATION BID 09/01/21 buspirone 15 mg PO BID 09/01/21 clonazepam 1 mg PO QHS 09/01/21 cyclobenzaprine 10 mg PO TID PRN 09/01/21 duloxetine 60 mg PO QHS 09/01/21 furosemide 40 mg PO DAILY 09/01/21 lamotrigine [Lamictal] 400 mg PO QHS 09/01/21 levothyroxine 75 mcg PO DAILY 09/01/21 montelukast [Singulair] 10 mg PO QHS 09/01/21 pantoprazole [Protonix] 40 mg PO BID 09/01/21 prednisone 5 mg PO DAILY 09/01/21 roflumilast 500 mcg PO DAILY 09/01/21 rosuvastatin [Crestor] 20 mg PO DAILY 09/01/21 trazodone 100 mg PO QHS 09/01/21 metoprolol tartrate 25 mg PO BID #60 tab 09/02/21 prednisone 10 mg PO DAILY #30 tab 09/02/21 simvastatin 40 mg PO QHS 09/02/21 Hospital Course Procedures 2-D Echocardiogram Summary of Care Provided Minutes Spent on Discharge: 28 Hospital Course: This is a 61-year-old female presents with palpitations. Patient was found to be in A. fib with RVR. Patient had echocardiogram that showed EF of 55%. Patient did not require any diltiazem drip but her metoprolol increased. Patient was complaining of shortness of breath and felt that asthma exacerbation started and was on prednisolone as well as bronchodilators. Patient is home O2 dependent. From my note dictated earlier on 09/02/2021: Notified by nursing that patient was having headache and was requesting Tylenol 3. I told there is no indication for products and headaches. She informed the patient is too demented to speak with me. Patient stated she has pain from head to toe. She has a medical marijuana card which I verified on her OARRS report shortly after going into her room patient immediately began berating me about statement that are no indications pancreatic some headaches. Informed her there is no evidence to support the use of narcotics and headaches in she then commenced to call me an asshole. She was asking if she can be put on Advil. The nurse was present at this time which asked nurse if the patient was on any blood thinners. Patient became very irate at that saying that we should know everything that she is on.*If she was on blood thinners patient directly said that she is not on Eliquis because diverticulitis gastritis. Informed her that the Eliquis would not cause but asked specifically she had a history of bleeding with anticoagulation. She is here for A. fib. She did not answer but stated that she is going to be leaving the hospital. Said that she is done. Clarified with her if she has suicidal ideation which he said was Bao. She said she is going to be leaving AGAINST MEDICAL ADVICE. I told her the risk of her leaving as much advice possible heart attack and . States that she will sign the forms presented to her. Also prescription for increase metoprolol from - prednisone taper so that she can resume her normal prednisone dosing at 5 mg. This will be sent to her pharmacy at [facility]. Physical Exam Narrative Angry and combative. No respiratory distress. On oxygen. Weight / BMI Weight Weight: 93.8 kg Body Mass Index (BMI) 38.8 ABG / Lab / Microbiology Data Result Diagrams: 09/02/21 06:25 09/02/21 06:25 Laboratory: Laboratory Results - last 24 hr 09/01/21 22:19: POC Glucose 111 H 09/02/21 06:25: WBC 11.3 H, RBC 3.95 L, Hgb 11.1 L, Hct 36.1 L, MCV 91.4, MCH 28.1, MCHC 30.7 L, RDW Std Deviation 49.2 H, RDW Coeff of Naomie 14.6, Plt Count 374, MPV 8.8, Immature Gran % (Auto) 0.800, Neut % (Auto) 56.5, Lymph % (Auto) 28.2, [place] % (Auto) 9.0, Eos % (Auto) 4.9, Baso % (Auto) 0.6, Absolute Neuts (auto) 6.4, Absolute Lymphs (auto) 3.19, Nucleated RBC % 0 09/02/21 06:25: Sodium 141, Potassium 3.2 L, Chloride 101, Carbon Dioxide 33.0 H , Anion Gap 7, BUN 14, Creatinine 0.78, Estim Creat Clear Calc 57.88, Est GFR (MDRD) Af Amer 96, Est GFR (MDRD) Non-Af 80, BUN/Creatinine Ratio 17.9, Glucose 120 H, Calcium 9.1, Total Bilirubin 0.30, AST 14 L, ALT 24, Alkaline Phosphatase 80, Total Protein 6.8, Albumin 3.1 L, Globulin 3.7, Albumin/Globulin Ratio 0.8 L , TSH 1.45, Free T4 1.12 09/02/21 06:44: POC Glucose 146 H 09/02/21 11:16: POC Glucose 163 H 09/02/21 16:17: POC Glucose 183 H Microbiology: Microbiology 09/01/21 15:50 Nasal Secretion SARS-CoV-2 Antigen (Rapid) - Final Radiography Diagnostic Testing: Radiology Impression Echocardiogram 09/01/21 16:47 Interpretation Summary The study was technically difficult. Contrast injection was performed. Based upon the 2D echocardiographic and contrast enhanced images obtained there appears to be grossly normal left ventricular size, wall motion, and systolic function. The estimated ejection fraction is 55 %. Trivial mitral valve insufficiency. Mild tricuspid valve insufficiency. Right ventricular systolic pressure estimated to be 28 mmHg. No evidence for diastolic dysfunction. Ordering Physician: Radha Noel Performed By: Daniela Morejon, ELIAS, RVT Meaningful Use Info Meaningful Use Diagnoses (Choose all that apply): None applicable Discharge Plan Admission Admit Date/Time: 09/01/21 15:14 Attending Provider: Varsha Queen Discharge Orders/Prescriptions Prescriptions: New metoprolol tartrate 25 mg Tablet 25 mg PO BID Qty: 60 RF: 0 prednisone 10 mg tablet 10 mg PO DAILY Qty: 30 RF: 0 Continued cyclobenzaprine 10 mg Tablet 10 mg PO TID PRN (Reason: Pain) RF: 0 furosemide 40 mg Tablet 40 mg PO DAILY RF: 0 lamotrigine [Lamictal] 200 mg Tablet 400 mg PO QHS RF: 0 clonazepam 1 mg Tablet 1 mg PO QHS RF: 0 acyclovir 400 mg Tablet 400 mg PO DAILY RF: 0 trazodone 100 mg Tablet 100 mg PO QHS RF: 0 pantoprazole [Protonix] 40 mg Tablet,Delayed Release (Dr/Ec) 40 mg PO BID RF: 0 montelukast [Singulair] 10 mg Tablet 10 mg PO QHS RF: 0 buspirone 15 mg Tablet 15 mg PO BID RF: 0 duloxetine 60 mg Capsule,Delayed Release(Dr/Ec) 60 mg PO QHS RF: 0 budesonide-formoterol 160-4.5 mcg/actuation Hfa Aerosol Inhaler 2 puff INHALATION BID RF: 0 roflumilast 500 mcg Tablet 500 mcg PO DAILY RF: 0 Spiriva Respimat 2.5 mcg/actuation Mist 2 puff INHALATION DAILY RF: 0 Lactobacillus rhamnosus GG 15 billion cell Capsule, Sprinkle 1 cap PO DAILY RF: 0 Jardiance 25 mg Tablet 25 mg PO DAILY RF: 0 albuterol sulfate [Ventolin HFA] 90 mcg/actuation Hfa Aerosol Inhaler 2 puff INHALATION Q6H PRN (Reason: COPD) RF: 0 levothyroxine 75 mcg Tablet 75 mcg PO DAILY RF: 0 rosuvastatin [Crestor] 20 mg Tablet 20 mg PO DAILY RF: 0 simvastatin 40 mg Tablet 40 mg PO QHS RF: 0 Held prednisone 5 mg Tablet 5 mg PO DAILY RF: 0 Hold Instructions: Resume on 09/14/21. Discontinued metoprolol tartrate 25 mg Tablet 12.5 mg PO BID RF: 0 Referrals / Follow Up: MAMIE FALL [Other] MAMIE FALL [Other] Disposition Disposition (needs filled in before D/C Order can be placed): Against Medical Advice Charges/Coding Visit Charges Inpatient E&M: 14571 Disch Hosp
== END 2021-09-02 20:55 | disposition left against medical advice (07) | DRG 309 ==
LOC: ED 15:19 → PCU 15:54
PROVIDERS: Admitting Provider Family Medicine; Emergency Provider Emergency Medicine; Visit Provider Student in an Organized Health Care Education/Training Program
DX: I48.0 Paroxysmal atrial fibrillation (principal); J45.901 Unspecified asthma with (acute) exacerbation; J96.11 Chronic respiratory failure with hypoxia; E11.9 Type 2 diabetes mellitus without complications; I10 Essential (primary) hypertension; E78.5 Hyperlipidemia, unspecified; F32.A Depression, unspecified; F41.9 Anxiety disorder, unspecified; E03.9 Hypothyroidism, unspecified; K21.9 Gastro-esophageal reflux disease without esophagitis; J43.9 Emphysema, unspecified; D50.9 Iron deficiency anemia, unspecified; G47.33 Obstructive sleep apnea (adult) (pediatric); R91.1 Solitary pulmonary nodule; Z99.81 Dependence on supplemental oxygen; Z79.890 Hormone replacement therapy; Z79.84 Long term (current) use of oral hypoglycemic drugs; Z79.899 Other long term (current) drug therapy; Z87.891 Personal history of nicotine dependence; Z87.19 Personal history of other diseases of the digestive system; Z53.29 Procedure and treatment not carried out because of patient's decision for other reasons
CPT/HCPCS: 36415; 71045; 80048; 80053; 82962; 83735; 84439; 84443; 84484; 85025; 87426; 93005; 93306; 99285; Q9957; A4216; C8929

== ENCOUNTER 2023-11-13 13:41 | Inpatient (IN) | payer MEDICARE, MEDICAID, SELFPAY ==
[2023-11-13] VITALS (14 sets, daily range): BP systolic 81–154; BP diastolic 52–121; PULSE 100–127; RESP 20–28; TEMP 36.6–37.5; O2SAT 91–97; BMI 37.5; BMI 37.4
--- NOTE | 2023-11-13 14:34 | EKG12_ITS ---
Test Reason : SOB Blood Pressure : / mmHG Vent. Rate : 125 BPM Atrial Rate : 250 BPM P-R Int : 000 ms QRS Dur : 080 ms QT Int : 296 ms P-R-T Axes : 242 041 231 degrees QTc Int : 427 ms Atrial flutter with 2:1 A-V conduction Marked ST abnormality, possible inferolateral subendocardial injury Abnormal ECG Confirmed by JOANA SAAVEDRA, THALIA ([id number]), food editor FLACO SHELDON ([id number]) on 11/15/2023 9:46:37 AM Referred By: LOUIE/SHANEL Confirmed By:THALIA BERNARD MD
[2023-11-13] MEDS: Aspirin 81 MG TAB.CHEW 324 MG PO (14:37)
--- NOTE | 2023-11-13 14:45 | RAD_ITS ---
STUDY: X-RAY CHEST REASON FOR EXAM: Female, 63 years old. chest pain TECHNIQUE: Single AP portable view of the chest. COMPARISON: 09/01/2021. FINDINGS: There is hyperinflation of the lungs consistent with chronic obstructive lung disease (COPD). Atelectasis or infiltrate in the lower right lung not present previously. No gross effusions. There is no demonstrated pleural abnormality. Normal size heart. Normal mediastinum and jd. Normal visualized pulmonary arteries. Normal visualized aortic arch and descending thoracic aorta. Normal visualized thoracic spine. Old right rib fractures, stable. There is no demonstrated abnormality of the visualized soft tissue structures of the upper abdomen. RAD/Chest 1 View (Portable) IMPRESSION: (COPD). Atelectasis or infiltrate in the lower right lung not present previously. Electronically Signed: Meliton Martin MD at 15:00 EST ,
[2023-11-13 14:52] LABS: Absolute Lymphocyte Count 1.23 X10^3/uL (0.83-4.51); Absolute Neutrophil Count 7.4 X10^3/uL (2.0-7.7); Basophil# 0.02 X10^3/uL; Basophil% 0.2 % (0-1); Eosinophil# 0.01 X10^3/uL; Eosinophils% 0.1 % (0-5); Hematocrit 31.1 % (37-47); Hemoglobin 8.7 g/dL (12.0-15.0); Lymphocyte # 1.23 X10^3/ul (0.83-4.51); Lymphocyte % 12.8 % (19-41); Mean Corpuscular Hgb 21.4 pg (27.0-32.0); Mean Corpuscular Volume 76.6 fL (81-99); Mean Platelet Vol. 9.1 fl (6.2-12.0); Monocyte# 0.91 X10^3/uL; Monocyte% 9.5 % (0-10); NRBC Flagged by Analyzer 0 % (0-5); Neutrophil # 7.35 X10^3/uL (2.7-7.7); Neutrophil % 76.7 % (47-70); Platelet Count 392 K/mm3 (150-450); RBC Distribution Width CV 17.9 % (11.6-14.6); RBC Distribution Width SD 49.9 fl (35.1-43.9); Red Blood Count 4.06 M/mm3 (4.2-5.4); White Blood Count 9.6 K/mm3 (4.4-11.0)
[2023-11-13 15:17] LABS: BNP,B-Type NATRIURETIC PEPTIDE 50.1 pg/mL (0-100)
--- NOTE | 2023-11-13 15:23 | EDS_ITS ---
HPI History of Present Illness Chief Complaint: Shortness of Breath Narrative Narrative: 63-year-old female presenting with generalized weakness x 2 weeks. She states she just feels unwell. She has not seen her PCP, printing roller handler, carpet weaver about the symptoms but does admit she has only 25% use of her lungs. She states she also has a history of GI bleed secondary to AV fistula was. Last scope where they found something for this was about 5 years ago. They states her GI doctor is Dr. Covington at [facility] and at [facility]. Patient states that they did have a upper endoscopy performed [address] [facility] which was negative for acute bleeding. She states that Dr. Covington told her she would need a pill swallow from now on due to her poor respiratory status and he did not think he could sedate her anymore. No pill swallow has been ordered. Patient states she has not had a hemoglobin issue until recently. She denies black or bloody stools but feels she might be bleeding. Patient states that her printing roller handler is at [facility]. Her printing roller handler who she recently saw 11/08/2023 via televisit did lab work which showed anemia. Patient was supposed to go for iron infusion at [facility] today but she states she could not make it due to her symptoms. These were ordered by Dr. Johnson at [facility]. Patient initially stated that she did not had a cough but then she stated she had production of sputum. After further discussion she states she has coughing and her sputum is more prevalent than it has been in the past. No hemoptysis is noted. Patient wears 4 L of oxygen which is her baseline. She was noted to be in A-fib by her friend and she does have a history of A-fib but is not anticoagulated and she only takes aspirin. This is because of her history of GI bleeds. [facility] Medical History Chronic hypoxemic respiratory failure Emphysema lung History of arteriovenous malformation (AVM) HLD (hyperlipidemia) HTN (hypertension) Iron deficiency anemia PAUL (obstructive sleep apnea) Paroxysmal atrial fibrillation Type 2 diabetes mellitus Home Medications Lactobacillus rhamnosus GG 15 billion cell sprinkle capsule 1 cap PO DAILY GUT HEALTH 09/01/21 [History Last Taken 11/13/23] acyclovir 400 mg tablet 400 mg PO DAILY ANTIRIVAL 09/01/21 [History Last Taken 11/13/23] albuterol sulfate 90 mcg/actuation aerosol inhaler (Ventolin HFA) 2 puff inhalation Q4H PRN COPD 09/01/21 [History Last Taken 11/13/23] clonazepam 1 mg tablet 1 mg PO QHS NIGHT TERRORS 09/01/21 [History Last Taken 11/12/23] cyclobenzaprine 10 mg tablet 10 mg PO TID PRN PAIN 09/01/21 [History Last Taken 08/31/21] duloxetine 60 mg capsule,delayed release 60 mg PO QHS DEPRESSION 09/01/21 [History Last Taken 11/12/23] empagliflozin 25 mg tablet (Jardiance) 25 mg PO DAILY DIABETES 09/01/21 [History Last Taken 11/13/23] furosemide 40 mg tablet 40 mg PO DAILY EDEMA 09/01/21 [History Last Taken 11/13/23] lamotrigine 200 mg tablet (Lamictal) 400 mg PO QHS MENTAL HEALTH 09/01/21 [History Last Taken 11/12/23] montelukast 10 mg tablet (Singulair) 10 mg PO QHS ASTHMA 09/01/21 [History Last Taken 11/12/23] pantoprazole 40 mg tablet,delayed release (Protonix) 40 mg PO BID ACID REFLUX 09/01/21 [History Last Taken 11/13/23] prednisone 5 mg tablet 5 mg PO DAILY STEROID 09/01/21 [History Last Taken 11/13/23] roflumilast 500 mcg tablet 500 mcg PO DAILY COPD 09/01/21 [History Last Taken 11/13/23] trazodone 100 mg tablet 200 mg PO QHS PRN SLEEP 09/01/21 [History Last Taken 11/12/23] metoprolol tartrate 25 mg tablet 25 mg PO BID BLOOD PRESSURE #60 tabs 09/02/21 [Rx Last Taken 11/13/23] budesonide 160 mcg-glycopyr 9 mcg-formot 4.8 mcg/actuation HFA inhaler (Breztri Aerosphere) 2 inh inhalation BID COPD 11/13/23 [History Last Taken 11/13/23] buspirone 30 mg tablet 30 mg PO BID ANXIETY 11/13/23 [History Last Taken 11/13/23] duloxetine 30 mg capsule,delayed release 30 mg PO QHS DEPRESSION 11/13/23 [History Last Taken 11/12/23] levothyroxine 50 mcg tablet 50 mcg PO DAILY THYROID 11/13/23 [History Last Taken 11/13/23] rosuvastatin 40 mg tablet 40 mg PO QHS BEDTIME 11/13/23 [History Last Taken 11/12/23] Allergy/AdvReac Type Severity Reaction Status Date / Time doxycycline Allergy Rash Verified 11/13/23 13:47 morphine Allergy Itching Verified 11/13/23 13:47 sulfamethoxazole Allergy Rash Verified 11/13/23 13:47 [From Bactrim] trimethoprim [From Bactrim] Allergy Rash Verified 11/13/23 13:47 levofloxacin [From Levaquin] AdvReac NEEDS Verified 11/13/23 13:47 FOLLOW-UP Penicillins AdvReac Vomiting Verified 11/13/23 13:47 Family History Mother Heart disease CVA (cerebral vascular accident) Parkinsons disease Father CAD (coronary artery disease) Myocardial infarction COPD (chronic obstructive pulmonary disease) Surgical History S/P bilateral foot surgery S/P S/P hysterectomy S/P nasal surgery S/P tonsillectomy and adenoidectomy Social History household members: significant other housing: apartment current occupational status: retired Smoking Status: Former smoker how long ago did patient quit smoking: Quit 6-7 yrs prior, smoked 2.5 ppd x 30 years. alcohol intake: never substance use type: other details: Uses medical cannabis edibles. ROS ROS ED Constitutional Constitutional ED: Denies chills or fever(s) Eyes Eyes: Denies change in vision or diplopia ENT ENT ED: Denies rhinorrhea or sore throat Cardiovascular Cardiovascular: Reports palpitations Respiratory/Chest Respiratory/Chest: Reports cough and dyspnea Gastrointestinal Gastrointestinal: Denies abdominal pain, nausea or vomiting Genitourinary Genitourinary ED: Denies dysuria or hematuria Musculoskeletal Musculoskeletal: Denies arthralgias Integumentary Denies abscess or Abrasions Neurologic Neurologic: Denies headache(s) or paresthesias Psychiatric Psychiatric: Denies anxiety or depression EXAM Physical Exam Const Vital Signs: 11/13/23 13:42 11/13/23 13:48 11/13/23 14:34 Temperature 98.4 F Temperature Source Axillary Pulse Rate 127 H 127 H Respiratory Rate 26 H 26 H Respiratory Effort Blood Pressure 108/76 103/76 Blood Pressure Mean 86 85 Pulse Ox 96 93 94 Oxygen Delivery Method Non-Rebreather Nasal Cannula Nasal Cannula Oxygen Flow Rate (L/min) 4 4 4 11/13/23 14:41 11/13/23 15:46 11/13/23 17:19 Temperature 98.5 F Temperature Source Axillary Pulse Rate 107 H 108 H 100 Respiratory Rate 28 H 20 H 20 H Respiratory Effort Blood Pressure 154/121 H 154/121 H Blood Pressure Mean 132 132 Pulse Ox 94 91 96 Oxygen Delivery Method Nasal Cannula Nasal Cannula Nasal Cannula Oxygen Flow Rate (L/min) 4 4 4 11/13/23 17:19 11/13/23 18:15 11/13/23 18:15 Temperature 98.0 F 98 F Temperature Source Temporal Temporal Pulse Rate 100 104 H Respiratory Rate 20 H 21 H 21 H Respiratory Effort Blood Pressure 81/58 L 101/52 L 101/52 L Blood Pressure Mean 65 68 68 Pulse Ox 96 96 Oxygen Delivery Method Nasal Cannula Nasal Cannula Oxygen Flow Rate (L/min) 3 11/13/23 18:18 11/13/23 18:18 Temperature Temperature Source Pulse Rate 102 H Respiratory Rate 25 H Respiratory Effort Normal Blood Pressure 101/52 L Blood Pressure Mean 68 Pulse Ox 95 Oxygen Delivery Method Nasal Cannula Oxygen Flow Rate (L/min) Positive obese General Appearance ED: NAD; Negative for pallor Nutritional Appearance: obese HEENT atraumatic Eyes PERRL and EOMs intact bilaterally General Eye ED: Yes pale conjunctiva Neck no lymphadenopathy and supple Resp normal respiratory effort Auscultation: Negative for rales, rhonchi or wheezes Cardio regular rhythm Rate: tachycardic GI non-tender and non-distended Neuro oriented x3 and CN's II-XII intact bilaterally Sensorium / Orientation: alert Motor Exam: strength 5/5 throughout Psych mental status grossly normal Skin no wounds and skin turgor normal General Skin Exam: Negative for jaundice or pallor MDM MDM MDM Narrative Medical decision making narrative: Patient presenting with shortness of breath, generalized weakness, increased production of sputum. She states she has a recent history of newfound anemia but denies any black or bloody stools. [facility] that she did in fact have a televisit with Dr. Johnson on 08 November 2023. Patient states that she had not spoken to any physicians about her current condition. It does not like she had had lab work done which showed anemia. Per his note she has prior workup in 2012 including EGD and colonoscopy which were unrevealing for blood loss. In May 2017 she had capsule endoscopy which was negative for blood clots. In 04/22/2018 she had inflammation of the gastric antrum which showed some angiodysplastic lesion which was controlled with a Hemoclip. Patient gets iron infusions on a regular basis ordered by Dr. Johnson which she is supposed to get at [facility] which she did not have done today because of her symptoms. Differential includes COPD exacerbation, CHF, pneumonia, ACS, PE, dehydration, anemia, GI bleed, electrolyte abnormalities, COVID, influenza. COVID and influenza swabs will be drawn. CBC to assess white blood cell count, hemoglobin, platelets. BMP to assess renal function, electrolytes. High-sensitivity troponin EKG to assess for ischemia. Chest x- ray to look for pneumonia/CHF. BNP will be obtained to assess for CHF. D-dimer will be obtained to rule out PE. D-dimer was obtained and elevated at 1.42. CBC shows normal white blood cell count 9.6. Hemoglobin 8.7. Review of the medical record shows that her last 1 was 8.1. This is actually gone up. Potassium was low at 2.4 and I attempted to replete this orally however the patient refused stating that it martins her stomach. She then asked for an IV and then requested that we stop it because it also martins. Patient states give me a banana. High-sensitivity troponin 16 and delta troponin 23 therefore there is no significant interval change. Patient's BNP 50.1. Chest x-ray on my interpretation showed possible right lower lobe infiltrate. EKG on my interpretation showed a flutter at 125 bpm. Patient with history of A-fib. Not anticoagulated. Since her D-dimer is elevated I did obtain a CTA of the chest which does not identify any PE or dissection but does show right upper lobe and right middle lobe infiltrates. Patient's COVID test came back positive today. It is unclear the timeline of her illness as she states has been sick for 2 weeks but also has a sick contact more recently. Patient attempted to ambulate and pulse ox dropped to 87% on her baseline 4 L while just sitting up in the bed. At this point we will admit the patient for further treatment. Impression: 1. COVID-19 2. Right upper lobe/right lower lobe infiltrate 3. Hypoxia 4. Hypokalemia Lab Data Attestation: I reviewed the patient's lab results. Labs: Laboratory Results - last 24 hr 11/13/23 11/13/23 13:50 16:00 WBC 9.6 RBC 4.06 L Hgb 8.7 L Hct 31.1 L MCV 76.6 L MCH 21.4 L MCHC 28.0 L RDW Std Deviation 49.9 H RDW Coeff of Naomie 17.9 H Plt Count 392 MPV 9.1 Immature Gran % (Auto) 0.700 Neut % (Auto) 76.7 H Lymph % (Auto) 12.8 L Long % (Auto) 9.5 Eos % (Auto) 0.1 Baso % (Auto) 0.2 Absolute Neuts (auto) 7.4 Absolute Lymphs (auto) 1.23 Nucleated RBC % 0 D-Dimer Quant (PE/DVT) 1.42 H* Sodium 138 Potassium 2.4 L* Chloride 93 L Carbon Dioxide 38.0 H Anion Gap 7 BUN 12 Creatinine 1.05 H Estim Creat Clear Calc 56.76 Est GFR (MDRD) Af Amer 68 Est GFR (MDRD) Non-Af 56 L BUN/Creatinine Ratio 11.4 Glucose 175 H Calcium 9.5 Magnesium 2.5 Troponin I High Sens 16 23 B-Natriuretic Peptide 50.1 Radiography Diagnostic Testing: Clinical Impression(s) from Imaging Studies Chest X-Ray 11/13/23 14:45 IMPRESSION: (COPD). Atelectasis or infiltrate in the lower right lung not present previously. Electronically Signed: Meliton Martin MD at 15:00 EST , Chest CTA 11/13/23 16:20 IMPRESSION: 1. No evidence of pulmonary embolus or aortic dissection. 2. Right upper lobe and right lower lobe scattered areas of peripheral fibrotic change with focal areas of airspace disease concerning for superimposed multifocal infiltrates/pneumonia in the appropriate clinical setting, clinically correlate. Electronically Signed: Roland RebolledoDO at 16:44 EST , Discharge Plan Triage Chief Complaint: Shortness of Breath ED Provider: Barney Rivera Dx/Rx/DC Orders Prescriptions: No Action cyclobenzaprine 10 mg Tablet 10 mg PO TID PRN (Reason: PAIN ) furosemide 40 mg Tablet 40 mg PO DAILY lamotrigine [Lamictal] 200 mg Tablet 400 mg PO QHS prednisone 5 mg Tablet 5 mg PO DAILY Hold Instructions: Resume on 09/14/21. clonazepam 1 mg Tablet 1 mg PO QHS acyclovir 400 mg Tablet 400 mg PO DAILY trazodone 100 mg Tablet 200 mg PO QHS PRN (Reason: SLEEP ) pantoprazole [Protonix] 40 mg Tablet,Delayed Release (Dr/Ec) 40 mg PO BID montelukast [Singulair] 10 mg Tablet 10 mg PO QHS duloxetine 60 mg Capsule,Delayed Release(Dr/Ec) 60 mg PO QHS Rx Instructions: TAKE ONE 30MG CAPSULE AND ONE 60MG CAPSULE TOGETHER ONCE DAILY AT BEDTIME FOR A TOTAL DAILY DOSE OF 90MG. roflumilast 500 mcg Tablet 500 mcg PO DAILY Lactobacillus rhamnosus GG 15 billion cell Capsule, Sprinkle 1 cap PO DAILY Jardiance 25 mg Tablet 25 mg PO DAILY albuterol sulfate [Ventolin HFA] 90 mcg/actuation Hfa Aerosol Inhaler 2 puff INHALATION Q4H PRN (Reason: COPD) metoprolol tartrate 25 mg Tablet 25 mg PO BID Qty: 60 0RF buspirone 30 mg tablet 30 mg PO BID duloxetine 30 mg capsule,delayed release(DR/EC) 30 mg PO QHS Rx Instructions: TAKE ONE 30MG CAPSULE AND ONE 60MG CAPSULE TOGETHER ONCE DAILY AT BEDTIME FOR A TOTAL DAILY DOSE OF 90MG. Breztri Aerosphere 160-9-4.8 mcg/actuation HFA aerosol inhaler 2 inh INHALATION BID levothyroxine 50 mcg tablet 50 mcg PO DAILY rosuvastatin 40 mg tablet 40 mg PO QHS Primary Care Provider: ZAIRE DUARTE Referrals: ZAIRE DUARTE DO [Primary Care Provider] - Capacity Legal Rn Otolaryngology Reflex Medical hold order details:: IF a medical hold is selected below, a suggested order for a MEDICAL HOLD will reflex upon signing the document. Next of kin: [place] law dictates a PRIORITY LIST for identifying legal decision-maker/legal next of kin in the following order (LNOK): 1st: The patient?s legal guardian, if any 2nd: The patient's spouse (if status is questionable, consult Risk Management) 3rd: The patient?s adult child(lonny) (majority, if multiple children) 4th: The patient?s parents 5th: The patient?s adult siblings (majority, if multiple children siblings)
[2023-11-13 15:54] LABS: Anion Gap 7 (5-15); BUN 12 mg/dL (7-18); BUN/Creat Ratio 11.4 RATIO (10-20); Calcium,Total 9.5 mg/dL (8.5-10.1); Chloride 93 mmol/L (98-107); Creatinine, Serum 1.05 mg/dL (0.55-1.02); EST Glomerular Filtration Rate 56 mL/min (>60); Est Glom Filt Rate - Afr Amer 68 mL/min (>60); Estimated Creatinine Clearance 56.76 ml/min; Glucose 175 mg/dL (74-106); Potassium 2.4 mmol/L (3.5-5.1); Sodium Level 138 mmol/L (136-145); Troponin-I HS (w/2H Reflex) 16 pg/mL (3.0-54.0)
[2023-11-13 16:00] LABS: D-Dimer Quantitative (DVT/PE) 1.42 FEU/ug/m (0.27-0.49)
[2023-11-13] MEDS: Lidocaine 5% Patch 1 PATCH TOPICAL (16:14)
[2023-11-13 16:16] LABS: Magnesium 2.5 mg/dL (1.6-2.6)
--- NOTE | 2023-11-13 16:20 | CT_ITS ---
STUDY: CTA CHEST REASON FOR EXAM: Female, 63 years old. dyspnea RADIATION DOSAGE (If Supplied By Facility): CTDIvol = ( 12.30 ) mGy, DLP = ( 559.94 ) mGycm TECHNIQUE: The examination was performed with the intravenous administration of IV 100mL Isovue-370. Post-processing of the angiographic images was performed, with multiplanar reformation and 3D reconstruction. Individualized dose optimization techniques were used for this CT. COMPARISON: None. FINDINGS: Normal enhancement of the main pulmonary artery and right and left pulmonary arteries. Normal enhancement of the bilateral peripheral pulmonary arteries. There is no demonstrated pulmonary embolism. Normal thoracic aorta and visualized great vessels. There is no demonstrated aortic dissection. Normal heart and pericardium. Normal mediastinum. Normal hilar regions. Normal visualized trachea and bronchi. The lungs are well expanded. Right upper lobe peripheral fibrotic changes are present with scattered areas of scattered focal airspace disease within the regions of fibrotic change with small areas of superimposed infiltrates not excluded. Scattered COPD centrilobular emphysematous changes are present throughout the lung parenchyma. Normal pleura. Normal chest wall structures. There are degenerative changes of thoracic spine. Normal visualized upper abdomen. CT/CTA Chest W/WO Contrast IMPRESSION: 1. No evidence of pulmonary embolus or aortic dissection. 2. Right upper lobe and right lower lobe scattered areas of peripheral fibrotic change with focal areas of airspace disease concerning for superimposed multifocal infiltrates/pneumonia in the appropriate clinical setting, clinically correlate. Electronically Signed: Roland Rebolledo DO at 16:44 EST ,
[2023-11-13 16:45] LABS: Reflex Troponin-HS? (from REC) Y
[2023-11-13 17:02] LABS: Troponin-I HS 23 pg/mL (3.0-54.0)
[2023-11-13] MEDS: 0.9% Normal Saline (500mL Bag) 500 ML 999 ML IV ×2 (17:12→18:19)
[2023-11-13] MEDS: Ketorolac 15 MG/ML Vial IV (17:12)
[2023-11-13] MEDS: Potassium Chloride 10mEq/100mL 10 MEQ/100 ML IV.SOLN. 100 MEQ IV BOLUS (18:19)
--- NOTE | 2023-11-13 18:43 | ED.RN ---
NURSE PAGED TO PTS ROOM. PT REQUESTING POTASSIUM BE STOPPED. PT STATES IT CONNELLY TOO MUCH AND I AM NOT DOING THIS. GIVE ME BANANAS. RN STATES YOUR POTASSIUM IS VERY LOW AND BANANAS ARE NOT GOING TO HELP YOUR LEVELS FAST ENOUGH. DR. BARRIOS NOTIFIED
--- NOTE | 2023-11-13 19:50 | PCM.HP.STD ---
HPI - General General Date of Admission: 11/13/23 Date of Service: 11/13/23 Chief Complaint: Shortness of breath/weakness HPI Narrative MARKUS CARLOS, is a 63 F who presented to the emergency department at [facility] on 11/13/2023 with multiple complaints. Her biggest complaint was worsening shortness of breath and generalized weakness. She states she has not been able to take care of herself lately because she has been so weak. She follows with pulmonology at [facility] and [facility] and [facility] also [facility] up with Joseph at [facility] for hematology. She has a known history of iron deficiency and has had multiple interventions and evaluation for this without any signs of acute bleeding. She periodically gets iron infusions over in [place] and was supposed to do so today but was unable to because she was feeling poorly. She did have a recent virtual visit on 11/08/2023 with her tinner automatic but was unable to explain what recommendations were made. Patient reports she has been feeling poorly with generalized weakness for 2 weeks. She has had some intermittent cough but it is dry without any significant sputum production. She has had no fever and states her Tmax has been 99.8 at home. She is on oxygen at 4 L at baseline and has a history of atrial fibrillation. She is not anticoagulated this due to her chronic anemia and only takes aspirin. Overall she is a poor historian. She states she was vaccinated for COVID with the first 2 rounds of vaccine but does not believe in vaccinations anymore. She has not had any sick contacts that she knows of and lives with his significant other. He was not present at the time of my evaluation. Vital signs in the emergency department showed a temperature of 98.5, heart rate 108, blood pressure was 104/67, respiratory rate has been anywhere between 20 and 25 and oxygen saturations were 91% on room air at rest however with exertion her saturations dropped to 87% on her baseline oxygen. Her CBC shows a white count of 9.6 but she does have a mild left shift. Her hemoglobin is 8.7 (last hemoglobin from previous records at outside hospital on 09/07/2023 was 8.1). Her chemistry panel showed significant hypokalemia with potassium of 2.4 and an elevated serum bicarb at 38 which appears to be chronic and elevated. Blood glucose of 175. Her troponin was unremarkable x 2 and her BNP was only 50.1. A D-dimer was obtained and found to be elevated at 1.42 and therefore CTA of her chest was performed. CT of the chest demonstrated no evidence of PE or aortic dissection but she does have bilateral upper lobe scattered fibrotic changes with focal areas of airspace disease concerning for superimposed multifocal infiltrates. Rapid COVID/flu/RSV PCR was performed and was positive for COVID-19. [facility] Medical History Chronic anemia Chronic hypoxemic respiratory failure Emphysema lung History of arteriovenous malformation (AVM) HLD (hyperlipidemia) HTN (hypertension) Iron deficiency anemia PAUL (obstructive sleep apnea) Paroxysmal atrial fibrillation Type 2 diabetes mellitus Home Medications Lactobacillus rhamnosus GG 15 billion cell sprinkle capsule 1 cap PO DAILY GUT HEALTH 09/01/21 [History Last Taken 11/13/23] acyclovir 400 mg tablet 400 mg PO DAILY ANTIRIVAL 09/01/21 [History Last Taken 11/13/23] albuterol sulfate 90 mcg/actuation aerosol inhaler (Ventolin HFA) 2 puff inhalation Q4H PRN COPD 09/01/21 [History Last Taken 11/13/23] clonazepam 1 mg tablet 1 mg PO QHS NIGHT TERRORS 09/01/21 [History Last Taken 11/12/23] cyclobenzaprine 10 mg tablet 10 mg PO TID PRN PAIN 09/01/21 [History Last Taken 08/31/21] duloxetine 60 mg capsule,delayed release 60 mg PO QHS DEPRESSION 09/01/21 [History Last Taken 11/12/23] empagliflozin 25 mg tablet (Jardiance) 25 mg PO DAILY DIABETES 09/01/21 [History Last Taken 11/13/23] furosemide 40 mg tablet 40 mg PO DAILY EDEMA 09/01/21 [History Last Taken 11/13/23] lamotrigine 200 mg tablet (Lamictal) 400 mg PO QHS MENTAL HEALTH 09/01/21 [History Last Taken 11/12/23] montelukast 10 mg tablet (Singulair) 10 mg PO QHS ASTHMA 09/01/21 [History Last Taken 11/12/23] pantoprazole 40 mg tablet,delayed release (Protonix) 40 mg PO BID ACID REFLUX 09/01/21 [History Last Taken 11/13/23] prednisone 5 mg tablet 5 mg PO DAILY STEROID 09/01/21 [History Last Taken 11/13/23] roflumilast 500 mcg tablet 500 mcg PO DAILY COPD 09/01/21 [History Last Taken 11/13/23] trazodone 100 mg tablet 200 mg PO QHS PRN SLEEP 09/01/21 [History Last Taken 11/12/23] metoprolol tartrate 25 mg tablet 25 mg PO BID BLOOD PRESSURE #60 tabs 09/02/21 [Rx Last Taken 11/13/23] budesonide 160 mcg-glycopyr 9 mcg-formot 4.8 mcg/actuation HFA inhaler (Breztri Aerosphere) 2 inh inhalation BID COPD 11/13/23 [History Last Taken 11/13/23] buspirone 30 mg tablet 30 mg PO BID ANXIETY 11/13/23 [History Last Taken 11/13/23] duloxetine 30 mg capsule,delayed release 30 mg PO QHS DEPRESSION 11/13/23 [History Last Taken 11/12/23] levothyroxine 50 mcg tablet 50 mcg PO DAILY THYROID 11/13/23 [History Last Taken 11/13/23] rosuvastatin 40 mg tablet 40 mg PO QHS BEDTIME 11/13/23 [History Last Taken 11/12/23] Allergy/AdvReac Type Severity Reaction Status Date / Time doxycycline Allergy Rash Verified 11/13/23 13:47 morphine Allergy Itching Verified 11/13/23 13:47 sulfamethoxazole Allergy Rash Verified 11/13/23 13:47 [From Bactrim] trimethoprim [From Bactrim] Allergy Rash Verified 11/13/23 13:47 levofloxacin [From Levaquin] AdvReac NEEDS Verified 11/13/23 13:47 FOLLOW-UP Penicillins AdvReac Vomiting Verified 11/13/23 13:47 Family History Mother Heart disease CVA (cerebral vascular accident) Parkinsons disease Father CAD (coronary artery disease) Myocardial infarction COPD (chronic obstructive pulmonary disease) Surgical History S/P bilateral foot surgery S/P S/P hysterectomy S/P nasal surgery S/P tonsillectomy and adenoidectomy Social History household members: significant other housing: apartment current occupational status: retired Smoking Status: Former smoker how long ago did patient quit smoking: Quit 6-7 yrs prior, smoked 2.5 ppd x 30 years. alcohol intake: never substance use type: other details: Uses medical cannabis edibles. ROS Constitutional Constitutional: Reports chills, fatigue, malaise and weakness; Denies anorexia, change in weight, fever(s), night sweats or other Eyes Eyes: Denies blurry vision, change in eye color, change in vision, discharge from eye(s), double vision, erythema, eye pain, loss of vision or other ENT HEENT: Reports headache(s) and nasal congestion; Denies abnormal hearing, dysphagia, ear pain, epistaxis, hearing loss, nasal discharge, post nasal drip, sinus pressure, sore throat or other Cardiovascular Cardiovascular: Reports dyspnea on exertion; Denies chest pain, claudication, edema, lightheadedness, orthopnea, palpitations, paroxysmal nocturnal dyspnea, rapid heart rate, syncope or other Respiratory/Chest Respiratory/Chest: Reports cough, dyspnea, shortness of breath at rest, shortness of breath with exertion and wheezing; Denies excessive phlegm production, hemoptysis, productive cough or other Gastrointestinal Gastrointestinal: Reports loose stools and nausea; Denies abdominal pain, coffee ground emesis, constipation, diarrhea, dyspepsia, hematemesis, hematochezia, melena, vomiting or other Genitourinary Genitourinary: Denies burning urination, difficulty urinating, dysuria, hematuria, nocturia, urinary frequency, urinary hesitancy, urinary incontinence, urinary urgency or other Musculoskeletal Musculoskeletal: Reports arthralgias, back pain, joint pain and joint stiffness; Denies joint swelling, myalgias, neck pain or other Neurologic Neurologic: Denies abnormal gait, abnormal speech, confusion, disequilibrium, dizziness, focal weakness, headache(s), numbness, paresthesias, seizure-like activity, seizures, syncope, tingling, tremor(s) or other Psychiatric Psychiatric: Reports anxiety and depression; Denies homicidal ideation, suicidal ideation or other Endocrine Endocrinology: Denies change in body appearance, cold intolerance, excessive sweating, heat intolerance, polydipsia, polyuria or other Hematologic/Lymphatic Hematologic/Lymphatic: Reports anemia; Denies easy bleeding, easy bruising, lymphadenopathy or other Allergic/Immunologic Allergic/Immunologic: Denies rhinitis, hives, eczemia, asthma or other Vital Signs Vital Signs Vital Signs: 11/13/23 13:42 11/13/23 13:48 11/13/23 14:34 Temperature 98.4 F Temperature Source Axillary Pulse Rate 127 H 127 H Respiratory Rate 26 H 26 H Respiratory Effort Blood Pressure 108/76 103/76 Blood Pressure Mean 86 85 Pulse Ox 96 93 94 Oxygen Delivery Method Non-Rebreather Nasal Cannula Nasal Cannula Oxygen Flow Rate (L/min) 4 4 4 11/13/23 14:41 11/13/23 15:46 11/13/23 17:19 Temperature 98.5 F Temperature Source Axillary Pulse Rate 107 H 108 H 100 Respiratory Rate 28 H 20 H 20 H Respiratory Effort Blood Pressure 154/121 H 154/121 H Blood Pressure Mean 132 132 Pulse Ox 94 91 96 Oxygen Delivery Method Nasal Cannula Nasal Cannula Nasal Cannula Oxygen Flow Rate (L/min) 4 4 4 11/13/23 17:19 11/13/23 18:15 11/13/23 18:15 Temperature 98.0 F 98 F Temperature Source Temporal Temporal Pulse Rate 100 104 H Respiratory Rate 20 H 21 H 21 H Respiratory Effort Blood Pressure 81/58 L 101/52 L 101/52 L Blood Pressure Mean 65 68 68 Pulse Ox 96 96 Oxygen Delivery Method Nasal Cannula Nasal Cannula Oxygen Flow Rate (L/min) 3 11/13/23 18:18 11/13/23 18:18 11/13/23 19:35 Temperature Temperature Source Pulse Rate 102 H 106 H Respiratory Rate 25 H Respiratory Effort Normal Blood Pressure 101/52 L 102/59 L Blood Pressure Mean 68 73 Pulse Ox 95 95 Oxygen Delivery Method Nasal Cannula Nasal Cannula Oxygen Flow Rate (L/min) 4 11/13/23 19:36 Temperature 98.0 F Temperature Source Temporal Pulse Rate 106 H Respiratory Rate 20 H Respiratory Effort Blood Pressure 102/59 L Blood Pressure Mean 73 Pulse Ox 96 Oxygen Delivery Method Nasal Cannula Oxygen Flow Rate (L/min) 4 Weight Weight: 90.1 kg Body Mass Index (BMI) 37.5 Results Lab / Micro Data 11/13/23 13:50 11/13/23 13:50 Labs: Laboratory Results - last 24 hr 11/13/23 13:50: WBC 9.6, RBC 4.06 L, Hgb 8.7 L, Hct 31.1 L, MCV 76.6 L, MCH 21.4 L, MCHC 28.0 L, RDW Std Deviation 49.9 H, RDW Coeff of Naomie 17.9 H, Plt Count 392, MPV 9.1, Immature Gran % (Auto) 0.700, Neut % (Auto) 76.7 H, Lymph % (Auto) 12.8 L, Hinds % (Auto) 9.5, Eos % (Auto) 0.1, Baso % (Auto) 0.2, Absolute Neuts (auto) 7.4, Absolute Lymphs (auto) 1.23, Nucleated RBC % 0, D-Dimer Quant (PE/DVT) 1.42 H*, Sodium 138, Potassium 2.4 L*, Chloride 93 L, Carbon Dioxide 38.0 H, Anion Gap 7, BUN 12, Creatinine 1.05 H, Estim Creat Clear Calc 56.76, Est GFR (MDRD) Af Amer 68, Est GFR (MDRD) Non-Af 56 L, BUN/Creatinine Ratio 11.4, Glucose 175 H, Calcium 9.5, Magnesium 2.5, Troponin I High Sens 16, B-Natriuretic Peptide 50.1 11/13/23 16:00: Troponin I High Sens 23 Micro: Microbiology 11/13/23 15:43 Mucosa - Nose SARS-CoV-2, Influenza & RSV (PCR) - Final SARS-CoV-2 (COVID 19) Imagaing Radiology Impression Chest X-Ray 11/13/23 14:45 IMPRESSION: (COPD). Atelectasis or infiltrate in the lower right lung not present previously. Electronically Signed: Meliton Martin MD at 15:00 EST , Chest CTA 11/13/23 16:20 IMPRESSION: 1. No evidence of pulmonary embolus or aortic dissection. 2. Right upper lobe and right lower lobe scattered areas of peripheral fibrotic change with focal areas of airspace disease concerning for superimposed multifocal infiltrates/pneumonia in the appropriate clinical setting, clinically correlate. Electronically Signed: Roland Rebolledo DO at 16:44 EST , Assessment & Plan Assessment/Plan (1) Hypoxia: (2) COVID-19 virus infection: (3) Elevated d-dimer: (4) Hypokalemia: (5) Hyperglycemia: (6) Debility: PLAN: Plan Acute hypoxia on chronic hypoxic and hypercapnic respiratory failure secondary to acute COVID-19 infection -Rapid COVID positive -We will check respiratory viral panel for superimposed viral infection -Check sputum culture if patient able to produce -Solu-Medrol 40 every 8 -Scheduled and as needed nebulizers -I-S -Acapella -Mucinex -Will hold off on antibiotics for now as this does not appear to be bacterial in nature however low threshold for starting if she decompensates or starts producing sputum or having fevers -Currently on her baseline oxygen of 4 L at rest however desatted to 87% with exertion on her baseline 4 L -Patient indicated she has had symptoms for 2 to 3 weeks on presentation so therefore we will hold off on Decadron and remdesivir as we are not able to identify symptom onset Hypokalemia -Patient received 40 IV in the emergency department -Will give another 40 p.o. -Repeat lab in a.m. -Check a.m. magnesium level Elevated D-dimer -CTA negative for PE -Will check lower extremity Dopplers -Patient is not anticoagulated for her A-fib due to chronic anemia and history of bleeding DM-2 with history of hyperglycemia -SSI -Continue home Jardiance -Accu-Cheks as ordered -Diabetic diet Debility -PT/OT consultation -Case management/social work consultation for assistance with discharge planning Paroxysmal atrial fibrillation -Patient is on metoprolol we will continue -Not anticoagulated due to chronic anemia and history of bleeding COPD -Oxygen dependent with FEV1 of 25% -Follows with pulmonary from [facility] -Hold home inhalers but will continue home Daliresp -Hold home steroids while on oral steroids here -Continue home Singulair Hypothyroidism -Continue home levothyroxine -Check TSH GERD -Continue home PPI Chronic edema -Patient takes Lasix 40 mg daily for this -Will continue to monitor electrolytes and renal function -Legs are currently not swollen Mood disorder NOS/depression/anxiety -Continue BuSpar -Continue clonazepam -Continue duloxetine -Continue Lamictal -Continue trazodone Hyperlipidemia -Continue rosuvastatin DVT prophylaxis -Lovenox daily Obesity -BMI is 37.5 -Recommend weight loss -Complicates treatment, prognosis, outcomes CODE STATUS -Full code is verified on admission Charges/Coding Visit Charges Inpatient E&M: 02119 Init Hosp L2
--- NOTE | 2023-11-13 20:48 | VDLE_ITS ---
Reason For Study: Elevated D Dimer RIGHT LEFT GSV is normal. GSV is normal. CFV is compressible, spontaneous, phasic, CFV is compressible, spontaneous, phasic, competent and demonstrates normal competent, and demonstrates normal augmentation. augmentation. FV is compressible, spontaneous, phasic, FV is compressible, spontaneous, phasic, competent and demonstrates normal competent and demonstrates normal augmentation. augmentation. POP V is compressible, spontaneous, phasic, POP V is compressible, spontaneous, phasic, competent and demonstrates normal competent and demonstrates normal augmentation. augmentation. T/P Trunk is compressible. T/P Trunk is compressible. PTV is compressible. PTV is compressible. RT PerV is compressible. LT PerV is compressible. Procedure This is a venous duplex using B-mode, color flow and spectral Doppler. Exam performed in department. The exam was diagnostic. A preliminary report was called and/or faxed to [facility]. VL/Venous Duplex US - Mino Extrem Interpretation Summary Deep veins of the bilateral lower extremities are patent and compressible segme ntally. There is no evidence of bilateral lower extremity deep vein thrombosis. The bilateral great saphenous veins appear patent and compressible segmentally. Ordering Physician: Saskia Dalal Referring Physician: Moses Elkins Performed By: Brown Martini RVT
--- NOTE | 2023-11-13 20:58 | CPS ---
[2037] Pt. has no interest in aerosol treatments while she's in the hospital. Pt. claims she has an adverse reaction to albuterol and has no interest in taking treatments at this time.
[2023-11-13 21:14] LABS: Bedside Glucose 110 mg/dL (74-106)
[2023-11-13] MEDS: busPIRone 15 MG TABLET 30 MG PO (21:48)
[2023-11-13] MEDS: Potassium Chloride Oral Tablet 20 MEQ 40 MEQ PO (21:48)
[2023-11-13] MEDS: lamoTRIgine 100 MG Tablet 400 MG PO (21:48)
[2023-11-13] MEDS: Atorvastatin Calcium 80 MG Tablet PO (21:49)
[2023-11-13] MEDS: Pantoprazole Sodium 40 MG Tablet PO (21:50)
[2023-11-13] MEDS: guaiFENesin 1,200 MG Tablet 1200 MG PO (21:50)
[2023-11-13] MEDS: clonazePAM 1 MG Tablet PO (21:50)
[2023-11-13] MEDS: Metoprolol Tartrate 25 MG Tablet PO (21:50)
[2023-11-13] MEDS: DULoxetine Hcl 60 MG Capsule PO (21:50)
[2023-11-13] MEDS: DULoxetine Hcl 30 MG Capsule PO (21:50)
[2023-11-13] MEDS: Montelukast 10 MG Tablet PO (21:50)
[2023-11-13] MEDS: cycloBENZAPRine HCl 10 MG Tablet PO (21:51)
[2023-11-13] MEDS: Ondansetron 4 MG/2 ML Vial IV (23:06)
[2023-11-13] MEDS: 0.9% Saline Lock 10 ML Syringe IV (23:06)
[2023-11-14] VITALS (10 sets, daily range): BP systolic 93–118; BP diastolic 54–72; PULSE 79–91; RESP 14–24; TEMP 36.4–36.9; O2SAT 92–96
--- NOTE | 2023-11-14 01:15 | NURSING ---
Pt refused her IV kriders in ER and on admission to the floor. Her Potassium was 2.4 and I tried educating her on the importance of her potassium in relation to cardiac Issues and she still refused it. I dissolved the patients po potassium in apple juice and the patient drank most of it but then vomited it up. I informed the physician DR. Nash of the situation and he said to get her am labs drawn at 0400 including her CMP and we will see if we need to put in another order of po potassium after we get back the lab results.
[2023-11-14 04:21] LABS: Absolute Lymphocyte Count 0.67 X10^3/uL (0.83-4.51); Absolute Neutrophil Count 8.2 X10^3/uL (2.0-7.7); Basophil# 0.01 X10^3/uL; Basophil% 0.1 % (0-1); Hematocrit 28.8 % (37-47); Hemoglobin 8.4 g/dL (12.0-15.0); Lymphocyte # 0.67 X10^3/ul (0.83-4.51); Lymphocyte % 7.2 % (19-41); Mean Corp Hgb Conc 29.2 g/dL (32-36); Mean Corpuscular Hgb 22.3 pg (27.0-32.0); Mean Corpuscular Volume 76.6 fL (81-99); Mean Platelet Vol. 8.7 fl (6.2-12.0); Monocyte# 0.34 X10^3/uL; Monocyte% 3.7 % (0-10); NRBC Flagged by Analyzer 0 % (0-5); Neutrophil % 88.2 % (47-70); Platelet Count 371 K/mm3 (150-450); RBC Distribution Width CV 18.2 % (11.6-14.6); RBC Distribution Width SD 50.8 fl (35.1-43.9); Red Blood Count 3.76 M/mm3 (4.2-5.4); White Blood Count 9.3 K/mm3 (4.4-11.0)
[2023-11-14 04:49] LABS: ALB/GLOB Ratio 0.7 RATIO (0.9-2.4); AST(SGOT) 32 U/L (15-37); Alanine Aminotransfer ALT/SGPT 21 U/L (13-56); Alkaline Phosphatase 78 U/L (45-117); Anion Gap 7 (5-15); BUN 15 mg/dL (7-18); BUN/Creat Ratio 12.6 RATIO (10-20); Calcium,Total 8.5 mg/dL (8.5-10.1); Chloride 95 mmol/L (98-107); Creatinine, Serum 1.19 mg/dL (0.55-1.02); EST Glomerular Filtration Rate 49 mL/min (>60); Est Glom Filt Rate - Afr Amer 59 mL/min (>60); Estimated Creatinine Clearance 50.05 ml/min; Globulin 4.2 g/dL (2.2-4.2); Glucose 190 mg/dL (74-106); Magnesium 2.5 mg/dL (1.6-2.6); Phosphorus 3.1 mg/dL (2.5-4.9); Potassium 2.8 mmol/L (3.5-5.1); Protein, Total 7.2 g/dL (6.4-8.2); Sodium Level 138 mmol/L (136-145); Thyroid Stim Hormone (TSH) 0.39 uIU/mL (0.358-3.74)
[2023-11-14] MEDS: Levothyroxine 50 MCG Tablet PO (06:23)
[2023-11-14] MEDS: Potassium Chloride Oral Soln 20 MEQ/15 ML UDC 60 MEQ PO (06:24)
[2023-11-14] MEDS: 0.9% Saline Lock 10 ML Syringe IV ×3 (06:26→21:39)
[2023-11-14 06:52] LABS: Bedside Glucose 149 mg/dL (74-106)
[2023-11-14] MEDS: Furosemide 40 MG Tablet PO (09:50)
[2023-11-14] MEDS: busPIRone 15 MG TABLET 30 MG PO ×2 (09:50→21:45)
[2023-11-14] MEDS: Empagliflozin 25 MG Tablet PO (09:50)
[2023-11-14] MEDS: Enoxaparin 40 MG/0.4 ML Syringe SC (09:50)
[2023-11-14] MEDS: Acyclovir 200 MG Capsule 400 MG PO (09:50)
[2023-11-14] MEDS: Pantoprazole Sodium 40 MG Tablet PO ×2 (09:51→21:45)
[2023-11-14] MEDS: Metoprolol Tartrate 25 MG Tablet PO (09:51)
[2023-11-14] MEDS: guaiFENesin 1,200 MG Tablet 1200 MG PO ×2 (09:51→21:44)
[2023-11-14] MEDS: Influenza Virus Vac Quad 23-24 60 MCG/0.5 ML SYRINGE IM (09:52)
[2023-11-14] MEDS: cycloBENZAPRine HCl 10 MG Tablet PO ×2 (09:53→20:56)
[2023-11-14 12:50] LABS: ALB/GLOB Ratio 0.7 RATIO (0.9-2.4); AST(SGOT) 34 U/L (15-37); Alanine Aminotransfer ALT/SGPT 24 U/L (13-56); Albumin, Serum 3.2 g/dL (3.2-5.0); Alkaline Phosphatase 84 U/L (45-117); Anion Gap 7 (5-15); BUN 16 mg/dL (7-18); BUN/Creat Ratio 12.2 RATIO (10-20); Chloride 96 mmol/L (98-107); Creatinine, Serum 1.31 mg/dL (0.55-1.02); EST Glomerular Filtration Rate 44 mL/min (>60); Est Glom Filt Rate - Afr Amer 53 mL/min (>60); Estimated Creatinine Clearance 45.47 ml/min; Globulin 4.5 g/dL (2.2-4.2); Glucose 218 mg/dL (74-106); Potassium 3.5 mmol/L (3.5-5.1); Protein, Total 7.7 g/dL (6.4-8.2); Sodium Level 138 mmol/L (136-145)
[2023-11-14] MEDS: Potassium Chloride Oral Tablet 10 MEQ 20 MEQ PO (13:28)
[2023-11-14] MEDS: Insulin Lispro 100 UNIT/ML INSULN.PEN SC ×2 (13:28→16:22)
[2023-11-14 14:00] LABS: Bedside Glucose 173 mg/dL (74-106)
--- NOTE | 2023-11-14 16:14 | CASEMGMT ---
JOHNNA LOPEZ Assessment Face to Face with patient for initial transition planning/care coordination assessment. JOHNNA LOPEZ introduced self and role at [facility], pt voices understanding. Pt is A&Ox4 and is resting comfortably in chair and is calm. Care providers, pharmacy, and demographics verified. Admitting dx: Hypoxia with COVID Pneumonia LACE Strata: 2 PCP: [facility] Specialists: Pt sees a Project Analyst, Upholstery Technician, and telecommunications cable jointer. Pt could not recall the specialist names. [facility] [employer] [facility] Prescription Benefit: Yes LNOK: Jayson Banuelos (Friend/ Certified Respiratory Therapist) Living Arrangements: Pt states living with her friend/ beam department supervisor one a single story home with a basement with 2 steps to enter the home. Pt states she does not go downstairs. Pt states that Jayson is retired and able to help the pt around the house as needed. ADLs/IADLs: States ind with ADLs. States that Jayson helps with IADLs. Transportation: Pt states she can drive if need be but Jayson does most of the driving. DME: Pt does not have a cane or walker at home. Pt request Rx for Walker, will follow. Pt states that she grabs onto things when walking short distances. Pt uses a WC for long distance travel. Pt has a shower chair. Pt states that she has a concentrator, portable O2 tank, and pulse ox. Pt states her O2 is through [employer]. [employer] called and states that her order for O2 is 2L continuous. Pt states that she wears 4L at home continuous. We will follow for O2 qualifications and needs. HHC/SNF: Denies history or needs. Pt?s goal: DC home with her friend Jayson. Plan: Monitor how pt with with therapy and O2 saturation levels. Will follow for O2 needs and walker for home. Pt denies wanting outpt therapy at this time. Will follow for potential HHC needs. TBD. Sarah Barahona RN, CM
[2023-11-14] MEDS: HYDROcodone Bitartrate/Apap 5/325 Tablet PO (16:17)
[2023-11-14] MEDS: ROFLUMILAST 500 MCG TABLET PO (16:18)
[2023-11-14 16:52] LABS: Bedside Glucose 192 mg/dL (74-106)
--- NOTE | 2023-11-14 18:13 | PCM.PN.HOSP ---
Reason for Visit Reason for Visit: Diagnoses Hypokalemia (11/13/23) Hypoxemia (11/13/23) Other malaise (11/13/23) Hyperglycemia, unspecified (11/13/23) Other specified abnormal findings of blood chemistry (11/13/23) COVID-19 (11/13/23) Subjective Subjective Patient was seen and examined today, she is currently refusing breathing treatments, she says she gets too shaky with them. Patient appears to have caught COVID approximately 2 weeks ago, she is out of the window for isolation so I have discontinued it. Patient is having some diarrhea, I offered some Imodium. Patient's potassium was low today she got supplemental potassium. Patient remains on her current home oxygen setting which is 4 L. Objective Data Objective Data Vital Signs: Vital Signs Temp Pulse Resp BP Pulse Ox O2 Del Method O2 Flow Rate 98.2 F 80 14 99/55 L 96 Nasal Cannula 4 11/14/23 17:46 11/14/23 17:46 11/14/23 17:46 11/14/23 17:46 11/14/23 17:46 11/14/23 17:46 11/14/23 17:46 Oxygen Flow Rate (L/min) 4 Oxygen Delivery Method Nasal Cannula Weight: 90 kg Body Mass Index (BMI) 37.4 Intake & Output: Intake and Output for Last 24 Hours 11/12/23 11/13/23 11/14/23 23:59 23:59 23:59 Intake Total 1035 / 1035 1300 / 1300 Output Total 150 / 150 Balance 1035 / 1035 1150 / 1150 Lab / Micro Data 11/14/23 04:01 11/14/23 12:04 Labs: Laboratory Results - last 24 hr 11/13/23 20:52: POC Glucose 110 H 11/14/23 04:01: WBC 9.3, RBC 3.76 L, Hgb 8.4 L, Hct 28.8 L, MCV 76.6 L, MCH 22.3 L, MCHC 29.2 L, RDW Std Deviation 50.8 H, RDW Coeff of Naomie 18.2 H, Plt Count 371, MPV 8.7, Immature Gran % (Auto) 0.800, Neut % (Auto) 88.2 H, Lymph % (Auto) 7.2 L, [place] % (Auto) 3.7, Eos % (Auto) 0.0, Baso % (Auto) 0.1, Absolute Neuts (auto) 8.2 H, Absolute Lymphs (auto) 0.67 L, Nucleated RBC % 0, Sodium 138, Potassium 2.8 L, Chloride 95 L, Carbon Dioxide 36.0 H, Anion Gap 7, BUN 15, Creatinine 1.19 H, Estim Creat Clear Calc 50.05, Est GFR (MDRD) Af Amer 59 L, Est GFR (MDRD) Non-Af 49 L, BUN/Creatinine Ratio 12.6, Glucose 190 H, Calcium 8.5, Phosphorus 3.1, Magnesium 2.5, Total Bilirubin 0.60, AST 32, ALT 21, Alkaline Phosphatase 78, Total Protein 7.2, Albumin 3.0 L, Globulin 4.2, Albumin/Globulin Ratio 0.7 L, TSH 0.39 11/14/23 06:22: POC Glucose 149 H 11/14/23 12:04: Sodium 138, Potassium 3.5, Chloride 96 L, Carbon Dioxide 35.0 H, Anion Gap 7, BUN 16, Creatinine 1.31 H, Estim Creat Clear Calc 45.47, Est GFR (MDRD) Af Amer 53 L, Est GFR (MDRD) Non-Af 44 L, BUN/Creatinine Ratio 12.2, Glucose 218 H, Calcium 9.0, Total Bilirubin 0.60, AST 34, ALT 24, Alkaline Phosphatase 84, Total Protein 7.7, Albumin 3.2, Globulin 4.5 H, Albumin/Globulin Ratio 0.7 L 11/14/23 13:25: POC Glucose 173 H 11/14/23 16:21: POC Glucose 192 H Micro: Microbiology 11/13/23 22:05 Sputum, Expectorated/Coughed Gram Stain - Final 11/13/23 20:34 Mucosa - Nasopharyngeal Respiratory Panel (PCR) - Final 11/13/23 15:43 Mucosa - Nose SARS-CoV-2, Influenza & RSV (PCR) - Final SARS-CoV-2 (COVID 19) Radiography Diagnostic Testing: Radiology Impression Venous Doppler Study 11/13/23 20:48 Interpretation Summary Deep veins of the bilateral lower extremities are patent and compressible segmentally. There is no evidence of bilateral lower extremity deep vein thrombosis. The bilateral great saphenous veins appear patent and compressible segmentally. Ordering Physician: Saskia Dalal Referring Physician: Moses Elkins Performed By: Brown Martini RVT Physical Exam Const alert, oriented x3 and no apparent distress General Appearance: cooperative, well kempt and well developed Orientation / Consciousness: awake, oriented to person, oriented to place and oriented to time HEENT normocephalic, head/scalp atraumatic and moist oral mucous membranes Eyes PERRL, EOMs intact bilaterally and conjunctivae normal Neck supple, no JVD, thyroid normal and no carotid bruits General: trachea midline Resp normal respiratory effort, no retractions and no use of accessory muscles Resp Narrative: Breath sounds are distant bilaterally Auscultation: Negative for rales, rhonchi or wheezes Cardio regular rate, regular rhythm, S1 normal heart sound, S2 normal heart sound, no murmurs, no rub and no gallops GI normal to inspection, nondistended, normoactive bowel sounds, soft to palpation, non-tender and non-distended Extremity no clubbing, cyanosis or edema Skin no rashes or lesions noted General Skin Exam: no breakdown Neuro oriented x3, CN's II-XII intact bilaterally, moves all extremities, no focal motor deficits and no sensory deficits noted Sensorium / Orientation: awake and alert Speech: speech normal Psych affect normal Assessment & Plan Assessment/Plan (1) Chronic obstructive pulmonary disease with acute exacerbation: PLAN: Plan 1. Exacerbation of chronic obstructive pulmonary disease-patient will remain on IV corticosteroids, she has refused breathing treatments, I do not hear any wheezing today, she requires only her home oxygen setting at this time. #2 debility secondary to #1-PT and OT are seeing patient #3 chronic kidney disease stage IIIb-complicates care, medical course, recovery, and prognosis #4 acute hypoxia on a backdrop of chronic combined respiratory failure secondary to exacerbation of COPD and recent COVID-19 infection-again patient will remain on IV corticosteroids, she has refused aerosol treatments. #5 type 2 [id number]-Vuun-Syyvx are ordered, patient will receive sliding scale insulin #6 hypokalemia-patient was unable to take p.o. potassium here in the hospital, she prefers her effervescent home potassium which will be brought in. BMP will be rechecked tomorrow Total clinical time spent by myself addressing the patient's medical issues, reviewing all of her data, and collaborating with patient's care team: 35 minutes Capacity Legal Brake [employer] Reflex Medical hold order details:: IF a medical hold is selected below, a suggested order for a MEDICAL HOLD will reflex upon signing the document. Next of kin: [place] law dictates a PRIORITY LIST for identifying legal decision-maker/legal next of kin in the following order (LNOK): 1st: The patient?s legal guardian, if any 2nd: The patient's spouse (if status is questionable, consult Risk Management) 3rd: The patient?s adult child(lonny) (majority, if multiple children) 4th: The patient?s parents 5th: The patient?s adult siblings (majority, if multiple children siblings) Charges/Coding Visit Charges Inpatient E&M: 65794 Subs Hosp L2
[2023-11-14] MEDS: lamoTRIgine 100 MG Tablet 400 MG PO (21:45)
[2023-11-14] MEDS: Atorvastatin Calcium 80 MG Tablet PO (21:46)
[2023-11-14] MEDS: DULoxetine Hcl 30 MG Capsule PO (21:46)
[2023-11-14] MEDS: Montelukast 10 MG Tablet PO (21:46)
[2023-11-14] MEDS: DULoxetine Hcl 60 MG Capsule PO (21:46)
[2023-11-14] MEDS: clonazePAM 1 MG Tablet PO (22:09)
[2023-11-14 22:58] LABS: Bedside Glucose 235 mg/dL (74-106)
[2023-11-15] VITALS (11 sets, daily range): BP systolic 119–143; BP diastolic 64–76; PULSE 80–94; RESP 24–26; TEMP 36.1–36.7; O2SAT 84–96
--- NOTE | 2023-11-15 03:34 | NURSING ---
When walking to the bathroom on 5L, patient's pulse ox was 79%.
[2023-11-15] MEDS: 0.9% Saline Lock 10 ML Syringe IV ×2 (06:38→13:52)
[2023-11-15] MEDS: Levothyroxine 50 MCG Tablet PO (06:38)
[2023-11-15] MEDS: cycloBENZAPRine HCl 10 MG Tablet PO ×2 (06:43→13:51)
[2023-11-15] MEDS: Insulin Lispro 100 UNIT/ML INSULN.PEN SC ×2 (06:44→12:08)
[2023-11-15 07:11] LABS: Bedside Glucose 173 mg/dL (74-106)
[2023-11-15] MEDS: guaiFENesin 1,200 MG Tablet 1200 MG PO (08:29)
[2023-11-15] MEDS: Enoxaparin 40 MG/0.4 ML Syringe SC (08:29)
[2023-11-15] MEDS: Metoprolol Tartrate 25 MG Tablet PO (08:29)
[2023-11-15] MEDS: Pantoprazole Sodium 40 MG Tablet PO (08:29)
[2023-11-15] MEDS: Empagliflozin 25 MG Tablet PO (08:30)
[2023-11-15] MEDS: ROFLUMILAST 500 MCG TABLET PO (08:30)
[2023-11-15] MEDS: Furosemide 40 MG Tablet PO (08:30)
[2023-11-15] MEDS: busPIRone 15 MG TABLET 30 MG PO (08:31)
[2023-11-15] MEDS: Acyclovir 200 MG Capsule 400 MG PO (08:31)
[2023-11-15] MEDS: HYDROcodone Bitartrate/Apap 5/325 Tablet PO (08:43)
[2023-11-15 13:04] LABS: Bedside Glucose 199 mg/dL (74-106)
--- NOTE | 2023-11-15 13:06 | DCINST_ITS ---
Discharge Instructions Diet Discharge Diet: No restrictions Activity Discharge Activity: Return to Normal Activity Weight Bearing Status: Weight bearing as tolerated Follow Up Care Test Results: Test results from this visit will be discussed in further detail at your follow- up appointment, if applicable. Discharge Plan Admission Admit Date/Time: 11/13/23 19:40 Primary Reason for Your Visit: exacerbation of COPD Attending Provider: Jered Spivey Primary Care Provider: ZAIRE DUARTE Consulting Providers: Saskia Dalal Discharge Orders/Prescriptions Prescriptions: New prednisone 20 mg tablet 20 mg PO BID Qty: 15 0RF Rx Instructions: two justus a day for 5 days, then one daily for 5 days, then resume home prednisone oxycodone 5 mg tablet 5 mg PO Q6H PRN (Reason: pain) 7 Days Qty: 48 0RF Rx Instructions: 5-10 mg every 6 hours as needed for arthritis pain Continued cyclobenzaprine 10 mg Tablet 10 mg PO TID PRN (Reason: PAIN ) furosemide 40 mg Tablet 40 mg PO DAILY lamotrigine [Lamictal] 200 mg Tablet 400 mg PO QHS prednisone 5 mg Tablet 5 mg PO DAILY Hold Instructions: Resume on 09/14/21. clonazepam 1 mg Tablet 1 mg PO QHS acyclovir 400 mg Tablet 400 mg PO DAILY trazodone 100 mg Tablet 200 mg PO QHS PRN (Reason: SLEEP ) pantoprazole [Protonix] 40 mg Tablet,Delayed Release (Dr/Ec) 40 mg PO BID montelukast [Singulair] 10 mg Tablet 10 mg PO QHS duloxetine 60 mg Capsule,Delayed Release(Dr/Ec) 60 mg PO QHS Rx Instructions: TAKE ONE 30MG CAPSULE AND ONE 60MG CAPSULE TOGETHER ONCE DAILY AT BEDTIME FOR A TOTAL DAILY DOSE OF 90MG. roflumilast 500 mcg Tablet 500 mcg PO DAILY Lactobacillus rhamnosus GG 15 billion cell Capsule, Sprinkle 1 cap PO DAILY Jardiance 25 mg Tablet 25 mg PO DAILY albuterol sulfate [Ventolin HFA] 90 mcg/actuation Hfa Aerosol Inhaler 2 puff INHALATION Q4H PRN (Reason: COPD) metoprolol tartrate 25 mg Tablet 25 mg PO BID Qty: 60 0RF buspirone 30 mg tablet 30 mg PO BID duloxetine 30 mg capsule,delayed release(DR/EC) 30 mg PO QHS Rx Instructions: TAKE ONE 30MG CAPSULE AND ONE 60MG CAPSULE TOGETHER ONCE DAILY AT BEDTIME FOR A TOTAL DAILY DOSE OF 90MG. Breztri Aerosphere 160-9-4.8 mcg/actuation HFA aerosol inhaler 2 inh INHALATION BID levothyroxine 50 mcg tablet 50 mcg PO DAILY rosuvastatin 40 mg tablet 40 mg PO QHS Referrals / Follow Up: ZAIRE DUARTE DO [Primary Care Provider] - Within 1 Month Disposition Disposition (needs filled in before D/C Order can be placed): Home, Self Care
--- NOTE | 2023-11-15 13:19 | PCM.DC.SUM ---
Providers Date of Admission: 11/13/23 Date of Discharge: 11/15/23 Primary Care Physician: ZAIRE ELKINS DO Reason For Visit: HYPOXIA WITH COVID 19 PNA Diagnosis Discharge Diagnosis (1) Chronic obstructive pulmonary disease with acute exacerbation: Status: Chronic Code(s): J44.1 - Chronic obstructive pulmonary disease with (acute) exacerbation Plan 1. Exacerbation of chronic obstructive pulmonary disease-patient will remain on IV corticosteroids, she has refused breathing treatments, I do not hear any wheezing today, she requires only her home oxygen setting at this time. #2 debility secondary to #1-PT and OT are seeing patient #3 chronic kidney disease stage IIIb-complicates care, medical course, recovery, and prognosis #4 acute hypoxia on a backdrop of chronic combined respiratory failure secondary to exacerbation of COPD and recent COVID-19 infection-again patient will remain on IV corticosteroids, she has refused aerosol treatments. #5 type 2 laylekyv-Tedh-Mukka are ordered, patient will receive sliding scale insulin #6 hypokalemia-patient was unable to take p.o. potassium here in the hospital, she prefers her effervescent home potassium which will be brought in. BMP will be rechecked tomorrow Total clinical time spent by myself addressing the patient's medical issues, reviewing all of her data, and collaborating with patient's care team: 35 minutes Medications at Discharge Home Medications Lactobacillus rhamnosus GG 15 billion cell sprinkle capsule 1 cap PO DAILY GUT HEALTH 09/01/21 acyclovir 400 mg tablet 400 mg PO DAILY ANTIRIVAL 09/01/21 albuterol sulfate 90 mcg/actuation aerosol inhaler (Ventolin HFA) 2 puff inhalation Q4H PRN COPD 09/01/21 clonazepam 1 mg tablet 1 mg PO QHS NIGHT TERRORS 09/01/21 cyclobenzaprine 10 mg tablet 10 mg PO TID PRN PAIN 09/01/21 duloxetine 60 mg capsule,delayed release 60 mg PO QHS DEPRESSION 09/01/21 empagliflozin 25 mg tablet (Jardiance) 25 mg PO DAILY DIABETES 09/01/21 furosemide 40 mg tablet 40 mg PO DAILY EDEMA 09/01/21 lamotrigine 200 mg tablet (Lamictal) 400 mg PO QHS MENTAL HEALTH 09/01/21 montelukast 10 mg tablet (Singulair) 10 mg PO QHS ASTHMA 09/01/21 pantoprazole 40 mg tablet,delayed release (Protonix) 40 mg PO BID ACID REFLUX 09/01/21 prednisone 5 mg tablet 5 mg PO DAILY STEROID 09/01/21 roflumilast 500 mcg tablet 500 mcg PO DAILY COPD 09/01/21 trazodone 100 mg tablet 200 mg PO QHS PRN SLEEP 09/01/21 metoprolol tartrate 25 mg tablet 25 mg PO BID BLOOD PRESSURE #60 tabs 09/02/21 budesonide 160 mcg-glycopyr 9 mcg-formot 4.8 mcg/actuation HFA inhaler (Breztri Aerosphere) 2 inh inhalation BID COPD 11/13/23 buspirone 30 mg tablet 30 mg PO BID ANXIETY 11/13/23 duloxetine 30 mg capsule,delayed release 30 mg PO QHS DEPRESSION 11/13/23 levothyroxine 50 mcg tablet 50 mcg PO DAILY THYROID 11/13/23 rosuvastatin 40 mg tablet 40 mg PO QHS BEDTIME 11/13/23 oxycodone 5 mg tablet 5 mg PO Q6H PRN pain 7 days #48 tabs 11/15/23 prednisone 20 mg tablet 20 mg PO BID #15 tabs 11/15/23 Hospital Course Operations None Procedures None Summary of Care Provided Minutes Spent on Discharge: 31 Hospital Course: 63-year-old white female with history of COPD was seen in the emergency room at [facility] with complaints of shortness of breath. Patient wears 4 L of oxygen at baseline at home. Workup in the emergency room included chest x-ray which showed a possible right lower lobe infiltrate, EKG showed atrial flutter at 125 bpm, patient's D-dimer was elevated and she had a CT of the chest obtained which did not identify any PE or dissection but did show right upper lobe and right middle lobe infiltrate. Patient's COVID-19 test came back positive, patient stated that she had been sick for 2 weeks and had also had a sick contact approximately 2 weeks ago. Patient was ambulated in the emergency room on her baseline oxygen and her pulse ox dropped to 87%. Patient was admitted for acute hypoxia on chronic combined respiratory failure secondary to recent COVID-19 infection, she was placed on IV Solu-Medrol and nebulizer treatments, she had some hypokalemia and oral potassium supplementation was given. Patient was seen by PT and OT. This examiner felt that she had an exacerbation of chronic obstructive pulmonary disease and not a pneumonia. On 11/15/2023, patient was seen and examined: On examination she appeared in good health and spirits, she does not appear to be in any distress. Vital signs as documented. Skin warm and dry and without overt rashes. Neck without JVD, thyroid appears normal, trachea is midline, neck is supple. Lungs clear, normal air movement was noted. Heart exam notable for regular rhythm, normal sounds and absence of murmurs, rubs or gallops. Abdomen unremarkable and without evidence of organomegaly, masses, or abdominal aortic enlargement, bowel sounds are present in all 4 quadrants, no abdominal tenderness was noted. Extremities nonedematous, no cyanosis was noted, no clubbing was noted. Neuro: Cranial nerves II through XII are grossly intact, no focal motor deficits were noted, sensation to light touch and pinprick is intact, motor exam 5/5 throughout. Psych: Patient is alert and oriented x3, she does not appear anxious or depressed, she does not appear agitated. On 11/15/2023, patient was seen and examined, she appeared to be at her baseline and after discussion with her, she requested to be discharged home. Patient stated she did not want to go to an extended care facility. Patient was discharged in stable condition on 11/15/2023. Weight / BMI Weight Weight: 90 kg Body Mass Index (BMI) 37.4 ABG / Lab / Microbiology Data 11/14/23 04:01 11/14/23 12:04 Laboratory: Laboratory Results - last 24 hr 11/14/23 13:25: POC Glucose 173 H 11/14/23 16:21: POC Glucose 192 H 11/14/23 21:37: POC Glucose 235 H 11/15/23 06:31: POC Glucose 173 H 11/15/23 12:07: POC Glucose 199 H Microbiology: Microbiology 11/13/23 22:05 Sputum, Expectorated/Coughed Gram Stain - Final 11/13/23 22:05 Sputum, Expectorated/Coughed Respiratory Culture - Final Mixed normal respiratory susan. No Streptococcus pneumoniae, beta-hemolytic Streptococcus or Staphylococcus aureus isolated. 11/13/23 20:34 Mucosa - Nasopharyngeal Respiratory Panel (PCR) - Final 11/13/23 15:43 Mucosa - Nose SARS-CoV-2, Influenza & RSV (PCR) - Final SARS-CoV-2 (COVID 19) Radiography Diagnostic Testing: Radiology Impression Venous Doppler Study 11/13/23 20:48 Interpretation Summary Deep veins of the bilateral lower extremities are patent and compressible segmentally. There is no evidence of bilateral lower extremity deep vein thrombosis. The bilateral great saphenous veins appear patent and compressible segmentally. Ordering Physician: Saskia Dalal Referring Physician: Zaire Elkins Performed By: Brown Martini RVT D/C Instructions Discharge Diet: No restrictions Weight Bearing Status: Weight bearing as tolerated Meaningful Use Info Meaningful Use Diagnoses (Choose all that apply): None applicable Discharge Plan Admission Admit Date/Time: 11/13/23 19:40 Primary Reason for Your Visit: exacerbation of COPD Attending Provider: Jered Spivey Primary Care Provider: ZAIRE ELKINS Consulting Providers: Saskia Dalal Discharge Orders/Prescriptions Prescriptions: New prednisone 20 mg tablet 20 mg PO BID Qty: 15 0RF Rx Instructions: two justus a day for 5 days, then one daily for 5 days, then resume home prednisone oxycodone 5 mg tablet 5 mg PO Q6H PRN (Reason: pain) 7 Days Qty: 48 0RF Rx Instructions: 5-10 mg every 6 hours as needed for arthritis pain Continued cyclobenzaprine 10 mg Tablet 10 mg PO TID PRN (Reason: PAIN ) furosemide 40 mg Tablet 40 mg PO DAILY lamotrigine [Lamictal] 200 mg Tablet 400 mg PO QHS prednisone 5 mg Tablet 5 mg PO DAILY Hold Instructions: Resume on 09/14/21. clonazepam 1 mg Tablet 1 mg PO QHS acyclovir 400 mg Tablet 400 mg PO DAILY trazodone 100 mg Tablet 200 mg PO QHS PRN (Reason: SLEEP ) pantoprazole [Protonix] 40 mg Tablet,Delayed Release (Dr/Ec) 40 mg PO BID montelukast [Singulair] 10 mg Tablet 10 mg PO QHS duloxetine 60 mg Capsule,Delayed Release(Dr/Ec) 60 mg PO QHS Rx Instructions: TAKE ONE 30MG CAPSULE AND ONE 60MG CAPSULE TOGETHER ONCE DAILY AT BEDTIME FOR A TOTAL DAILY DOSE OF 90MG. roflumilast 500 mcg Tablet 500 mcg PO DAILY Lactobacillus rhamnosus GG 15 billion cell Capsule, Sprinkle 1 cap PO DAILY Jardiance 25 mg Tablet 25 mg PO DAILY albuterol sulfate [Ventolin HFA] 90 mcg/actuation Hfa Aerosol Inhaler 2 puff INHALATION Q4H PRN (Reason: COPD) metoprolol tartrate 25 mg Tablet 25 mg PO BID Qty: 60 0RF buspirone 30 mg tablet 30 mg PO BID duloxetine 30 mg capsule,delayed release(DR/EC) 30 mg PO QHS Rx Instructions: TAKE ONE 30MG CAPSULE AND ONE 60MG CAPSULE TOGETHER ONCE DAILY AT BEDTIME FOR A TOTAL DAILY DOSE OF 90MG. Breztri Aerosphere 160-9-4.8 mcg/actuation HFA aerosol inhaler 2 inh INHALATION BID levothyroxine 50 mcg tablet 50 mcg PO DAILY rosuvastatin 40 mg tablet 40 mg PO QHS Referrals / Follow Up: ZAIRE ELKINS DO [Primary Care Provider] - Within 1 Month Disposition Disposition (needs filled in before D/C Order can be placed): Home, Self Care Charges/Coding Visit Charges Inpatient E&M: 79929 Disch Hosp >30min
--- NOTE | 2023-11-15 15:06 | CASEMGMT ---
Pt is requiring 6L of O2 with exertion. Pt friend Jayson brought pt portable O2 tank and states the pt goes through [employer]. This RN CM calls [facility] and confirms pt current Rx stating 4-6 L continuous. New updated Rx faxed to [facility] at this time. Pt states that she is ready to DC and denies further needs at this time. Pt states her home concentrator goes up to 10L and she she has a walker at home.
== END 2023-11-15 15:21 | disposition home or self-care (01) | DRG 178 ==
LOC: ED 19:27 → MS3 19:53
PROVIDERS: Internal Medicine; Admitting Provider Internal Medicine; Emergency Provider Student in an Organized Health Care Education/Training Program; PCP Family Medicine; Visit Provider Internal Medicine
DX: U07.1 COVID-19 (principal); I48.92 Unspecified atrial flutter; J96.12 Chronic respiratory failure with hypercapnia; J44.1 Chronic obstructive pulmonary disease with (acute) exacerbation; D63.1 Anemia in chronic kidney disease; E11.22 Type 2 diabetes mellitus with diabetic chronic kidney disease; D50.0 Iron deficiency anemia secondary to blood loss (chronic); E03.9 Hypothyroidism, unspecified; N18.32 Chronic kidney disease, stage 3b; E11.65 Type 2 diabetes mellitus with hyperglycemia; I48.0 Paroxysmal atrial fibrillation; I12.9 Hypertensive chronic kidney disease with stage 1 through stage 4 chronic kidney disease, or unspecified chronic kidney disease; F32.A Depression, unspecified; E78.5 Hyperlipidemia, unspecified; E87.6 Hypokalemia; K21.9 Gastro-esophageal reflux disease without esophagitis; F41.9 Anxiety disorder, unspecified; E66.9 Obesity, unspecified; R53.81 Other malaise; R79.1 Abnormal coagulation profile; R60.0 Localized edema; Z68.37 Body mass index [BMI] 37.0-37.9, adult; Z99.81 Dependence on supplemental oxygen; Z79.51 Long term (current) use of inhaled steroids; Z79.52 Long term (current) use of systemic steroids; Z79.84 Long term (current) use of oral hypoglycemic drugs; Z79.899 Other long term (current) drug therapy; Z87.19 Personal history of other diseases of the digestive system; Z87.891 Personal history of nicotine dependence; Z23 Encounter for immunization
CPT/HCPCS: 36415; 71045; 71275; 80048; 80053; 82962; 83735; 83880; 84100; 84443; 84484; 85025; 85379; 87070; 87205; 87631; 87633; 93005; 93970; 94668; 97116; 97162; 97165; 97530; 99252; 99285; J7040; Q9967; 90686; A4216; G0463; J2405

== ENCOUNTER → 2024-02-27 | Outpatient (CLI) | payer MEDICARE, MEDICAID, SELFPAY ==
[2024-02-27 16:16] LABS: Anion Gap 5 (5-15); BUN 12 mg/dL (7-18); BUN/Creat Ratio 12.2 RATIO (10-20); Calcium,Total 9.1 mg/dL (8.5-10.1); Chloride 99 mmol/L (98-107); Creatinine, Serum 0.98 mg/dL (0.55-1.02); EST Glomerular Filtration Rate 61 mL/min (>60); Est Glom Filt Rate - Afr Amer 73 mL/min (>60); Glucose 175 mg/dL (74-106); Potassium 3.5 mmol/L (3.5-5.1); Sodium Level 141 mmol/L (136-145)
== END | disposition home or self-care (01) ==
PROVIDERS: PCP Family Medicine; Referring Provider Family Medicine; Visit Provider Family Medicine
DX: E87.6 Hypokalemia (principal)
CPT/HCPCS: 36415; 80048

== ENCOUNTER 2025-02-11 03:04 | Emergency (ER) | payer MEDICARE, MEDICAID, SELFPAY ==
[2025-02-11] VITALS (9 sets, daily range): BP systolic 114–185; BP diastolic 61–110; PULSE 89–112; RESP 16–30; TEMP 36.4–36.6; O2SAT 96–99; BMI 40.8
--- NOTE | 2025-02-11 03:41 | EKG12_ITS ---
Test Reason : PALPITATIONS Blood Pressure : */* mmHG Vent. Rate : 103 BPM Atrial Rate : 103 BPM P-R Int : 126 ms QRS Dur : 90 ms QT Int : 282 ms P-R-T Axes : 63 48 72 degrees QTcB Int : 369 ms Sinus tachycardia Nonspecific ST and T wave abnormality Abnormal ECG Confirmed by Koko Ford ([id number]), editor news FLACO SHELDON ([id number]) on 02/12/2025 7:01:30 AM Referred By: KOSTAS Confirmed By: Koko Ford
--- NOTE | 2025-02-11 03:42 | ED.VIS.CHEST ---
HPI History of Present Illness Chief Complaint: Palpitations Informant: patient Narrative Narrative: Patient is a 51-year-old female presenting EMS for palpitations and vomiting. Patient has a history of centrilobular emphysema, chronic hypoxia on 5 L of oxygen at baseline, anxiety, depression, paroxysmal atrial fibrillation (was recently switched from metoprolol to diltiazem) and chronic diastolic heart failure. She states for the past few weeks she has had increased palpitations. She saw her slabber light through [facility] and was recently switched on her medication for this. She states her heart rate has been around the 120s but tonight while she was in bed her heart rate went up to the 160s. She also notes that she started coughing and that her stomach felt queasy and she started throwing up. She notes that lately she has been more short of breath. She is chronic dyspnea on exertion. She is also been having chest tightness/pressure for the past few days. Is her cough is mostly dry. Denies any fevers. Denies any new leg swelling but states sometimes her calves do feel tight. She she is actually down on her weight (usually was 216 but today was 207). Patient is a history of GI bleeding therefore is not on blood thinners for A-fib. [facility] Medical History Chronic anemia History of arteriovenous malformation (AVM) HTN (hypertension) HLD (hyperlipidemia) Paroxysmal atrial fibrillation Type 2 diabetes mellitus Iron deficiency anemia PAUL (obstructive sleep apnea) Emphysema lung Chronic hypoxemic respiratory failure Home Medications ?Medication ?Instructions ?Recorded ?Last Taken ?Type Lactobacillus rhamnosus GG 15 1 cap PO DAILY GUT HEALTH 09/01/21 11/13/23 History billion cell sprinkle capsule acyclovir 400 mg tablet 400 mg PO DAILY ANTIRIVAL 09/01/21 11/13/23 History albuterol sulfate 90 mcg/actuation 2 puff inhalation Q4H PRN COPD 09/01/21 11/13/23 History aerosol inhaler (Ventolin HFA) cyclobenzaprine 10 mg tablet 10 mg PO TID PRN PAIN 09/01/21 08/31/21 History duloxetine 60 mg capsule,delayed 60 mg PO QHS DEPRESSION 09/01/21 11/12/23 History release empagliflozin 25 mg tablet 25 mg PO DAILY DIABETES 09/01/21 11/13/23 History (Jardiance) furosemide 40 mg tablet 40 mg PO DAILY EDEMA 09/01/21 11/13/23 History lamotrigine 200 mg tablet 400 mg PO QHS MENTAL HEALTH 09/01/21 11/12/23 History (Lamictal) pantoprazole 40 mg tablet,delayed 40 mg PO BID ACID REFLUX 09/01/21 11/13/23 History release (Protonix) prednisone 5 mg tablet 5 mg PO DAILY STEROID 09/01/21 11/13/23 History roflumilast 500 mcg tablet 500 mcg PO DAILY COPD 09/01/21 11/13/23 History trazodone 100 mg tablet 200 mg PO QHS PRN SLEEP 09/01/21 11/12/23 History budesonide 160 mcg-glycopyr 9 2 inh inhalation BID COPD 11/13/23 11/13/23 History mcg-formot 4.8 mcg/actuation HFA inhaler (Breztri Aerosphere) buspirone 30 mg tablet 30 mg PO BID ANXIETY 11/13/23 11/13/23 History duloxetine 30 mg capsule,delayed 30 mg PO QHS DEPRESSION 11/13/23 11/12/23 History release levothyroxine 50 mcg tablet 50 mcg PO DAILY THYROID 11/13/23 11/13/23 History rosuvastatin 40 mg tablet 40 mg PO QHS BEDTIME 11/13/23 11/12/23 History azelastine 137 mcg (0.1 %) nasal 137 mcg intranasal BID PRN dryness 02/11/25 Unknown History spray cefdinir 300 mg capsule 300 mg PO BID 5 days #10 caps 02/11/25 Unknown Rx diltiazem HCl 180 mg 180 mg PO DAILY 02/11/25 Unknown History capsule,extended release 24 hr hydroxyzine HCl 10 mg tablet 10 mg PO BID PRN PRN anxiety 02/11/25 Unknown History potassium chloride 20 mEq oral 20 meq PO DAILY 5 days #5 ea 02/11/25 Unknown Rx packet temazepam 30 mg capsule 30 mg PO QHS PRN PRN night terrors 02/11/25 Unknown History Allergy/AdvReac Type Severity Reaction Status Date / Time doxycycline Allergy Rash Verified 02/11/25 03:14 morphine Allergy Itching Verified 02/11/25 03:14 sulfamethoxazole (From Allergy Rash Verified 02/11/25 03:14 Bactrim) trimethoprim (From Bactrim) Allergy Rash Verified 02/11/25 03:14 levofloxacin (From Levaquin) AdvReac NEEDS Verified 02/11/25 03:14 FOLLOW-UP Family History Mother Heart disease CVA (cerebral vascular accident) Parkinsons disease Father CAD (coronary artery disease) Myocardial infarction COPD (chronic obstructive pulmonary disease) Surgical History S/P nasal surgery S/P tonsillectomy and adenoidectomy S/P bilateral foot surgery S/P hysterectomy S/P Social History household members: significant other housing: apartment current occupational status: retired Smoking Status: Former smoker how long ago did patient quit smoking: Quit 6-7 yrs prior, smoked 2.5 ppd x 30 years. alcohol intake: never substance use type: other details: Uses medical cannabis edibles. ROS ROS ED Constitutional Constitutional ED: Denies chills or fever(s) Cardiovascular Cardiovascular: Reports chest pain, palpitations and racing heartbeat Respiratory/Chest Respiratory/Chest: Reports cough, dyspnea and dyspnea on exertion Gastrointestinal Gastrointestinal: Reports nausea, vomiting and other Details: Reports chronic constipation, no acute change ; Denies diarrhea Genitourinary Genitourinary ED: Denies dysuria or urinary frequency Musculoskeletal Musculoskeletal: Denies arthralgias or myalgias Integumentary Denies rash Neurologic Neurologic: Reports weakness Hematologic/Lymphatic Hematologic/Lymphatic: Denies easy bleeding or easy bruising EXAM Physical Exam Const Vital Signs: 02/11/25 03:05 02/11/25 03:10 02/11/25 03:41 Temperature 97.6 F L Temperature Source Oral Pulse Rate 112 H Respiratory Rate 19 H Respiratory Effort Normal Respiratory Pattern Blood Pressure 185/110 H Blood Pressure Mean 135 Pulse Ox 96 98 Oxygen Delivery Method Nasal Cannula Nasal Cannula Oxygen Flow Rate (L/min) 5 5 02/11/25 04:04 02/11/25 04:26 02/11/25 05:00 Temperature Temperature Source Pulse Rate 101 H 104 H 107 H Respiratory Rate 21 H 16 22 H Respiratory Effort Respiratory Pattern Normal Blood Pressure 164/65 H Blood Pressure Mean 98 Pulse Ox 99 98 Oxygen Delivery Method Nasal Cannula Nasal Cannula Oxygen Flow Rate (L/min) 5 5 02/11/25 06:00 02/11/25 06:37 Temperature Temperature Source Pulse Rate 111 H 103 H Respiratory Rate 30 H 24 H Respiratory Effort Respiratory Pattern Blood Pressure 126/65 H 126/61 H Blood Pressure Mean 85 82 Pulse Ox 97 98 Oxygen Delivery Method Room Air Nasal Cannula Oxygen Flow Rate (L/min) 5 Positive well nourished and well developed General Appearance ED: well developed and NAD; Negative for pallor HEENT Reports dry mucous membranes normocephalic Mouth ED: Yes dry mucous membranes Mouth: dry mucous membranes Eyes PERRL Neck supple and no JVD Chest Wall inspection of chest normal and palpation of chest normal Resp Resp Narrative: Normal respiratory rate but intermittent pursed lip breathing present. Significantly diminished breath sounds (left more than right). Scattered expiratory wheezing noted on the right. No crackles appreciated. Cardio regular rhythm and no murmurs Rate: tachycardic Peripheral Pulses: pulses 2+ throughout GI normal to inspection, nondistended, normoactive bowel sounds, soft to palpation and non-tender Extremity normal to inspection General Extremety ED: Negative for edema General Extremity: Negative for edema Neuro oriented x3 Sensorium / Orientation: awake and alert Motor Exam: Negative for general weakness Psych mental status grossly normal Skin no rashes or lesions noted General Skin Exam: Negative for pallor MDM MDM MDM Narrative Medical decision making narrative: Patient's evaluated for ongoing palpitations as well as 3 days of chest pressure and now an episode of what sounds like posttussive vomiting and increased tachycardia. Patient is generally weak appearing but nontoxic. Vital signs initially significant for hypertension and tachycardia. She is on her baseline oxygen of 5 L. Differential includes sinus arrhythmia, ACS, infection, pneumonia, pulmonary emboli, COPD exacerbation, RED, electrolyte abnormality, hyperthyroidism. Patient is given a DuoNeb as she has very tight breath sounds. On repeat evaluation after this presents have improved as well as her heart rate. She states she is feeling more comfortable. Patient CBC does show leukocytosis with white blood cell count of 14.7 and anemia with a hemoglobin of 9.7. Hemoglobin actually peers to be above her baseline. D-dimer is normal for age adjustment suspicion for PE as a cause of her presentation. I do not think she requires CTA. Chest x-ray will be added on. BMP shows hypokalemia with a potassium of 2.9 and mild hypochloremia with a chloride of 93. Patient does have an elevated bicarb and is consistent with her underlying lung disease. She is hyperglycemic with a glucose of 302 which is have known diabetes. Her anion gap is normal. Lactate elevated at 2.6 which is nonspecific. Magnesium is actually high at 2.4. Initial high-sensitivity troponin 14 and normal. TSH minimally elevated at 5.76 which is nonspecific and I do not think related to her tachycardia. 2 view chest x-ray reviewed by myself as well as radiology does not show any acute process. Patient is given 5 mg IV metoprolol. I will discuss case with cardiology to see if they recommend further medication adjustment given her tach. Include to place patient on a burst of steroids and treat as a COPD exacerbation given the improvement of heart rate and breath sounds with DuoNeb in the emergency room. Patient is given potassium replacement and gentle IV fluids as I do think there is a slight component of volume contraction as well. Case discussed with cardiology on-call, Dr. Ford. He recommends switching the patient back to her metoprolol from her diltiazem. Recommends the patient call her slabber light for follow-up and have her take a copy of her EKG from today for when she follows up. Patient is agreeable with this plan of care. She states she still has her metoprolol at home and does not need a prescription. She also has prednisone at home and does not need prescription of that for her COPD exacerbation. History & Record Review Additional record(s) reviewed:: Prior outpatient record (Cardiology note-patient switch from metoprolol to Cardizem. Tachycardia thought to be secondary to her underlying lung disease and concern for increasing beta-luis miguel) Lab Data Attestation: I reviewed the patient's lab results. Labs: Laboratory Results - last 24 hr 02/11/25 02/11/25 02/11/25 03:56 04:16 05:57 WBC 14.7 H RBC 3.70 L Hgb 9.7 L Hct 31.9 L MCV 86.2 MCH 26.2 L MCHC 30.4 L RDW Std Deviation 49.6 H RDW Coeff of Naomie 15.7 H Plt Count 456 H MPV 8.4 Immature Gran % (Auto) 1.200 H Neut % (Auto) 71.3 H Lymph % (Auto) 15.9 L Mckenzie % (Auto) 7.8 Eos % (Auto) 3.3 Baso % (Auto) 0.5 Absolute Neuts (auto) 10.5 H Absolute Lymphs (auto) 2.33 Nucleated RBC % 0 D-Dimer Quant (PE/DVT) 0.56 H* Sodium 140 Potassium 2.9 L Chloride 93 L Carbon Dioxide 33.8 H Anion Gap 13 BUN 10 Creatinine 1.12 Estim Creat Clear Calc 55.13 Est GFR (MDRD) Non-Af 55 L BUN/Creatinine Ratio 8.5 L Glucose 302 H Lactic Acid 2.6 H* Calcium 9.7 Magnesium 2.4 H Troponin T High Sens 14 Troponin T Hi Sens 2 Hr 19 H TSH 5.760 H Radiography Diagnostic Testing: Clinical Impression(s) from Imaging Studies Chest X-Ray 02/11/25 05:37 IMPRESSION: No evidence of acute disease. Reading Location: [id number] Rhythm Strip Rhythm Strip: Sinus Tach Rate: 103 Ectopy: None EKG Initial EKG: Attestation: I personally reviewed and interpreted this EKG as follows: Interpretation: Sinus Tachycardia Comments: Sinus tachycardia rate of 103 bpm Normal axis Normal intervals ST depressions in lateral leads as well as V3 through V6 Compared to prior EKG on 11/13/2023, ST changes are the same however patient is no longer in atrial flutter Discharge Plan Triage Chief Complaint: Palpitations ED Provider: Yazmin Cooper Dx/Rx/DC Orders Clinical Impression: Chest tightness, Tachycardia, Hypokalemia, Asthma exacerbation in COPD Instructions: ED COPD Flare, ED Hypokalemia, ED Tachycardia: PAT Prescriptions: New potassium chloride 20 mEq packet 20 meq PO DAILY 5 Days Qty: 5 0RF cefdinir 300 mg capsule 300 mg PO BID 5 Days Qty: 10 0RF No Action cyclobenzaprine 10 mg Tablet 10 mg PO TID PRN (Reason: PAIN ) furosemide 40 mg Tablet 40 mg PO DAILY lamotrigine [Lamictal] 200 mg Tablet 400 mg PO QHS prednisone 5 mg Tablet 5 mg PO DAILY acyclovir 400 mg Tablet 400 mg PO DAILY trazodone 100 mg Tablet 200 mg PO QHS PRN (Reason: SLEEP ) pantoprazole [Protonix] 40 mg Tablet,Delayed Release (Dr/Ec) 40 mg PO BID duloxetine 60 mg Capsule,Delayed Release(Dr/Ec) 60 mg PO QHS Rx Instructions: TAKE ONE 30MG CAPSULE AND ONE 60MG CAPSULE TOGETHER ONCE DAILY AT BEDTIME FOR A TOTAL DAILY DOSE OF 90MG. roflumilast 500 mcg Tablet 500 mcg PO DAILY Lactobacillus rhamnosus GG 15 billion cell Capsule, Sprinkle 1 cap PO DAILY Jardiance 25 mg Tablet 25 mg PO DAILY albuterol sulfate [Ventolin HFA] 90 mcg/actuation Hfa Aerosol Inhaler 2 puff INHALATION Q4H PRN (Reason: COPD) buspirone 30 mg tablet 30 mg PO BID duloxetine 30 mg capsule,delayed release(DR/EC) 30 mg PO QHS Rx Instructions: TAKE ONE 30MG CAPSULE AND ONE 60MG CAPSULE TOGETHER ONCE DAILY AT BEDTIME FOR A TOTAL DAILY DOSE OF 90MG. Breztri Aerosphere 160-9-4.8 mcg/actuation HFA aerosol inhaler 2 inh INHALATION BID levothyroxine 50 mcg tablet 50 mcg PO DAILY rosuvastatin 40 mg tablet 40 mg PO QHS temazepam 30 mg capsule 30 mg PO QHS PRN PRN (Reason: night terrors ) diltiazem HCl 180 mg capsule,extended release 24hr 180 mg PO DAILY azelastine 137 mcg (0.1 %) spray,non-aerosol 137 mcg INTRANASAL BID PRN (Reason: dryness) hydroxyzine HCl 10 mg tablet 10 mg PO BID PRN PRN (Reason: anxiety) Primary Care Provider: VELVET ALTMAN Referrals: ZAIRE DUARTE, [Non-Staff] - Activity Restrictions/Additional Instructions: Please switch back to metoprolol from the diltiazem. You may stop taking the diltiazem and resume your normal dose of metoprolol. You been given a copy of your EKG to follow-up with your slabber light at [facility]. In addition please take a burst of prednisone (20 mg daily for 5 days) to help with your breathing. You have also prescribed a short course of antibiotics to help with this. Finally your potassium was low today so you have been prescribed a course of potassium powder to help continue to bring it up. If you feel that your breathing or symptoms are worsening please return to the emergency room. Print Language: Colombian Disposition Disposition: Home, Self Care
[2025-02-11] MEDS: Aspirin 81 MG TAB.CHEW 324 MG PO (03:51)
[2025-02-11 04:04] LABS: Absolute Lymphocyte Count 2.33 X10^3/uL (0.83-4.51); Absolute Neutrophil Count 10.5 X10^3/uL (2.0-7.7); Basophil# 0.07 X10^3/uL; Basophil% 0.5 % (0-1); Eosinophil# 0.48 X10^3/uL; Eosinophils% 3.3 % (0-5); Hematocrit 31.9 % (37-47); Hemoglobin 9.7 g/dL (12.0-15.0); Lymphocyte # 2.33 X10^3/ul (0.83-4.51); Lymphocyte % 15.9 % (19-41); Mean Corp Hgb Conc 30.4 g/dL (32-36); Mean Corpuscular Hgb 26.2 pg (27.0-32.0); Mean Corpuscular Volume 86.2 fL (81-99); Mean Platelet Vol. 8.4 fl (6.2-12.0); Monocyte# 1.15 X10^3/uL; Monocyte% 7.8 % (0-10); NRBC Flagged by Analyzer 0 % (0-5); Neutrophil # 10.48 X10^3/uL (2.7-7.7); Neutrophil % 71.3 % (47-70); Platelet Count 456 K/mm3 (150-450); RBC Distribution Width CV 15.7 % (11.6-14.6); RBC Distribution Width SD 49.6 fl (35.1-43.9); White Blood Count 14.7 K/mm3 (4.4-11.0)
[2025-02-11] MEDS: Ipratropium/Albuterol Sulfate 3 ML AMPUL.NEB INHALATION (04:24)
[2025-02-11 04:36] LABS: Anion Gap 13 (5-15); BUN 10 mg/dL (4-19); BUN/Creat Ratio 8.5 RATIO (10-20); Calcium,Total 9.7 mg/dL (7.6-11.0); Carbon Dioxide 33.8 mmol/L (21.0-32.0); Chloride 93 mmol/L (98-108); Creatinine, Serum 1.12 mg/dL (0.70-1.20); EST Glomerular Filtration Rate 55 (>60); Estimated Creatinine Clearance 55.13 ml/min (50-250); Glucose 302 mg/dL (70-99); Magnesium 2.4 mg/dL (1.5-2.2); Potassium 2.9 mmol/L (3.3-5.1); Sodium Level 140 mmol/L (133-145); Troponin T High Sensitivity 14 ng/L (<=14)
[2025-02-11 04:41] LABS: D-Dimer Quantitative (DVT/PE) 0.56 FEU/ug/m (0.27-0.49)
[2025-02-11 05:03] LABS: Lactic Acid 2.6 mmol/L (0.0-2.0)
--- NOTE | 2025-02-11 05:37 | RAD_ITS ---
PROCEDURE: CHEST PA AND LATERAL 02/11/2025 REASON FOR EXAM: COUGH TECHNIQUE: Frontal and lateral views of the chest. FINDINGS: The lungs appear clear. Pulmonary vascularity appears within limits. No pleural effusion. The cardiac and mediastinal contours appear within limits. Atherosclerotic changes at the aortic arch. Old right- sided rib fracture deformities noted. Shoulder degenerative changes. Status post cholecystectomy. RAD/Chest PA and Lateral IMPRESSION: No evidence of acute disease. Reading Location: [id number]
[2025-02-11] MEDS: Potassium Chloride 10mEq/100mL 10 MEQ/100 ML IV.SOLN. 100 MEQ IV BOLUS (05:41)
[2025-02-11] MEDS: Potassium Chloride Oral Soln 20 MEQ/15 ML UDC PO (05:41)
[2025-02-11 06:30] LABS: Troponin T High Sens 2 HR 19 ng/L (<=14)
[2025-02-11] MEDS: Metoprolol Tartrate 5 MG/5 ML Vial IV (06:33)
[2025-02-11] MEDS: MethylPREDNISolone 125 MG/2 ML Vial 60 MG IV (06:58)
[2025-02-11 08:22] LABS: Reflex Lactate? Y
== END 2025-02-11 07:42 | disposition home or self-care (01) ==
PROVIDERS: Emergency Provider Emergency Medicine; Visit Provider Emergency Medicine
DX: R07.89 Other chest pain (principal); I11.0 Hypertensive heart disease with heart failure; I50.32 Chronic diastolic (congestive) heart failure; J43.2 Centrilobular emphysema; J44.1 Chronic obstructive pulmonary disease with (acute) exacerbation; I48.0 Paroxysmal atrial fibrillation; E11.65 Type 2 diabetes mellitus with hyperglycemia; J45.901 Unspecified asthma with (acute) exacerbation; R00.0 Tachycardia, unspecified; E87.6 Hypokalemia; Z99.81 Dependence on supplemental oxygen; Z79.84 Long term (current) use of oral hypoglycemic drugs; Z79.899 Other long term (current) drug therapy; Z87.891 Personal history of nicotine dependence
CPT/HCPCS: 71046; 80048; 83605; 83735; 84443; 84484; 85025; 85379; 93005; 94640; 96365; 96366; 96375; 99285; A4216

== ENCOUNTER 2025-03-03 19:15 | Emergency (ER) | payer MEDICARE, MEDICAID, SELFPAY ==
[2025-03-03 19:17] VITALS: BP 145/71; PULSE 120; RESP 20; TEMP 36.6; O2SAT 92; BMI 39.1
--- NOTE | 2025-03-03 19:32 | ED.RN ---
Pt verbally abusive towards staff. What brought her to the ED, pt responded,Well just what I wrote bowel obstruction. asked pt if she had seen a doctor and got that dx and she said,No I just Know!!! Can we shout the door? advised for safety the door must stay open. Pt then said,what do you want? asked pt to give symptoms, and pt evasive on discussing.Pt then states she has heart and emphysema.
--- NOTE | 2025-03-03 20:15 | CT_ITS ---
PROCEDURE: ABDOMEN/PELVIS WITHOUT CONT 03/03/2025 REASON FOR EXAM: PAIN TECHNIQUE: Abdomen and pelvis CT without intravenous contrast. Noncontrast technique limits evaluation of the abdominal and pelvic viscera. Coronal and Sagittal reconstruction series were provided. One or more dose reduction techniques were used (e.g., Automated exposure control, adjustment of the mA and/or kV according to patient size, use of iterative reconstruction technique). PATIENT PREPARATION: Per protocol ORAL CONTRAST TYPE: None. AMOUNT: mL COMPARISON: None FINDINGS: Lung bases: Bibasilar atelectasis. Emphysema. Liver: Mild hepatomegaly, craniocaudal length 17.5 cm. Diffuse steatosis. No focal lesion. Gallbladder: No ductal dilation. Status post cholecystectomy. Spleen: Normal size. Pancreas: Normal size. No surrounding inflammation. Adrenals: Unremarkable. Kidneys: No urolithiasis. No hydronephrosis. Bladder: No wall thickening. Mild anterior prolapse, through the pubic symphysis. Reproductive Organs: No pelvic mass or ascites. Bowel: Stomach is unremarkable. No bowel dilation. Colonic diverticulosis without diverticulitis. Appendix: Normal appendix. Lymph nodes: No suspicious lymph node enlargement. Vasculature: Moderate diffuse atherosclerotic calcifications are noted. Peritoneum / Retroperitoneum: No ascites. No pneumoperitoneum. Bones: Degenerative changes of the spine. Grade 1 anterolisthesis of L5 on S1. Soft tissue: Small ventral hernia. CT/Abdomen/Pelvis without Cont IMPRESSION: 1. No acute findings in the abdomen and pelvis. 2. Colonic diverticulosis without diverticulitis. 3. Hepatomegaly and diffuse steatosis. Reading Location: [facility]
--- NOTE | 2025-03-03 20:15 | ED.VIS.GI ---
HPI HPI - GI History of Present Illness Chief Complaint: Constipation Detail of Chief Complaint: Constipation Informant: patient Narrative Narrative: Patient presents to the emergency department with complaint of constipation. States she has not had a good bowel movement in over 2 weeks. She is having small amounts of stool a lot of days but thinks that it is just more liquidy stool coming around and obstruction possibly. Patient states that she several weeks ago had issues with low potassium and then was started on potassium. Denies taking any narcotic pain medications. Denies any significant abdominal pain. She has had no fever or vomiting. Denies urinary symptoms. [facility] Medical History Chronic anemia History of arteriovenous malformation (AVM) HTN (hypertension) HLD (hyperlipidemia) Paroxysmal atrial fibrillation Type 2 diabetes mellitus Iron deficiency anemia PAUL (obstructive sleep apnea) Emphysema lung Chronic hypoxemic respiratory failure Home Medications ?Medication ?Instructions ?Recorded ?Last Taken ?Type Lactobacillus rhamnosus GG 15 1 cap PO DAILY GUT HEALTH 09/01/21 11/13/23 History billion cell sprinkle capsule acyclovir 400 mg tablet 400 mg PO DAILY ANTIRIVAL 09/01/21 11/13/23 History albuterol sulfate 90 mcg/actuation 2 puff inhalation Q4H PRN COPD 09/01/21 11/13/23 History aerosol inhaler (Ventolin HFA) cyclobenzaprine 10 mg tablet 10 mg PO TID PRN PAIN 09/01/21 08/31/21 History duloxetine 60 mg capsule,delayed 60 mg PO QHS DEPRESSION 09/01/21 11/12/23 History release empagliflozin 25 mg tablet 25 mg PO DAILY DIABETES 09/01/21 11/13/23 History (Jardiance) furosemide 40 mg tablet 40 mg PO DAILY EDEMA 09/01/21 11/13/23 History lamotrigine 200 mg tablet 400 mg PO QHS MENTAL HEALTH 09/01/21 11/12/23 History (Lamictal) pantoprazole 40 mg tablet,delayed 40 mg PO BID ACID REFLUX 09/01/21 11/13/23 History release (Protonix) prednisone 5 mg tablet 5 mg PO DAILY STEROID 09/01/21 11/13/23 History roflumilast 500 mcg tablet 500 mcg PO DAILY COPD 09/01/21 11/13/23 History trazodone 100 mg tablet 200 mg PO QHS PRN SLEEP 09/01/21 11/12/23 History budesonide 160 mcg-glycopyr 9 2 inh inhalation BID COPD 11/13/23 11/13/23 History mcg-formot 4.8 mcg/actuation HFA inhaler (Breztri Aerosphere) buspirone 30 mg tablet 30 mg PO BID ANXIETY 11/13/23 11/13/23 History duloxetine 30 mg capsule,delayed 30 mg PO QHS DEPRESSION 11/13/23 11/12/23 History release levothyroxine 50 mcg tablet 50 mcg PO DAILY THYROID 11/13/23 11/13/23 History rosuvastatin 40 mg tablet 40 mg PO QHS BEDTIME 11/13/23 11/12/23 History azelastine 137 mcg (0.1 %) nasal 137 mcg intranasal BID PRN dryness 02/11/25 Unknown History spray cefdinir 300 mg capsule 300 mg PO BID 5 days #10 caps 02/11/25 Unknown Rx diltiazem HCl 180 mg 180 mg PO DAILY 02/11/25 Unknown History capsule,extended release 24 hr hydroxyzine HCl 10 mg tablet 10 mg PO BID PRN PRN anxiety 02/11/25 Unknown History potassium chloride 20 mEq oral 20 meq PO DAILY 5 days #5 ea 02/11/25 Unknown Rx packet temazepam 30 mg capsule 30 mg PO QHS PRN PRN night terrors 02/11/25 Unknown History Allergy/AdvReac Type Severity Reaction Status Date / Time doxycycline Allergy Rash Verified 03/03/25 19:19 morphine Allergy Itching Verified 03/03/25 19:19 sulfamethoxazole (From Allergy Rash Verified 03/03/25 19:19 Bactrim) trimethoprim (From Bactrim) Allergy Rash Verified 03/03/25 19:19 levofloxacin (From Levaquin) AdvReac NEEDS Verified 03/03/25 19:19 FOLLOW-UP Family History Mother Heart disease CVA (cerebral vascular accident) Parkinsons disease Father CAD (coronary artery disease) Myocardial infarction COPD (chronic obstructive pulmonary disease) Surgical History S/P nasal surgery S/P tonsillectomy and adenoidectomy S/P bilateral foot surgery S/P hysterectomy S/P Social History household members: significant other housing: apartment current occupational status: retired Smoking Status: Former smoker how long ago did patient quit smoking: Quit 6-7 yrs prior, smoked 2.5 ppd x 30 years. alcohol intake: never substance use type: other details: Uses medical cannabis edibles. ROS ROS ED Review of Systems ROS Unobtainable: other Constitutional Constitutional ED: Reports lethargy; Denies chills, fever(s), sweats or weight loss Eyes Eyes: Denies blurry vision, change in vision or diplopia ENT ENT ED: Denies rhinorrhea or sore throat Cardiovascular Cardiovascular: Denies chest pain, orthopnea or racing heartbeat Respiratory/Chest Respiratory/Chest: Denies cough, dyspnea, dyspnea on exertion, orthopnea or sputum Gastrointestinal Gastrointestinal: Reports constipation; Denies abdominal pain, diarrhea, nausea or vomiting Genitourinary Genitourinary ED: Denies dysuria, hematuria or urinary frequency Musculoskeletal Musculoskeletal: Denies arthralgias, back pain, myalgias or neck pain Integumentary Denies abscess, Abrasions or rash Neurologic Neurologic: Denies headache(s) or weakness Psychiatric Psychiatric: Denies anxiety, depression or suicidal thoughts Endocrine Endocrinology: Denies polydipsia, polyphagia or polyuria Hematologic/Lymphatic Hematologic/Lymphatic: Denies easy bleeding, easy bruising or lymphadenopathy Allergic/Immunologic Allergic/Immunologic ED: Denies mouth swelling, tongue swelling or urticaria EXAM Physical Exam Const Vital Signs: 03/03/25 19:17 03/03/25 21:58 Temperature 97.9 F 98.9 F Temperature Source Temporal Oral Pulse Rate 120 H 84 Respiratory Rate 20 H 16 Blood Pressure 145/71 H 107/63 Blood Pressure Mean 95 77 Pulse Ox 92 97 Oxygen Delivery Method Nasal Cannula Nasal Cannula Oxygen Flow Rate (L/min) 5 4 Positive well nourished and well developed General Appearance ED: well developed and NAD HEENT Reports TM's clear and moist mucous membranes normocephalic and atraumatic; Negative for trauma or tenderness Tympanic Membrane ED: Yes TM's clear Eyes PERRL and EOMs intact bilaterally General Eye ED: Negative for pale conjunctiva or scleral icterus Neck no lymphadenopathy, supple and no JVD General: Negative for tenderness Chest Wall inspection of chest normal and palpation of chest normal Chest: Negative for tenderness Resp normal respiratory effort and clear to auscultation bilaterally Effort and Inspection: Negative for respiratory distress or pain with movement Auscultation: Negative for rhonchi, wheezes or diminished lung sounds Cardio regular rate, regular rhythm, S1 normal heart sound, S2 normal heart sound and no murmurs Peripheral Pulses: pulses 2+ throughout GI normal to inspection, nondistended, normoactive bowel sounds, soft to palpation, non-tender, non-distended and no masses Back/Spine no CVA tenderness and no thoracic nor lumbar tenderness Extremity normal to inspection General Extremety ED: Negative for edema General Extremity: Negative for edema Neuro oriented x3, CN's II-XII intact bilaterally, no sensory deficits noted and gait normal Sensorium / Orientation: awake, alert, oriented to person, oriented to place and oriented to time Motor Exam: strength 5/5 throughout and strength abnormal Psych mental status grossly normal Skin no rashes or lesions noted and no wounds MDM MDM MDM Narrative Medical decision making narrative: Patient presents with concern for constipation. Has been having small bowel movements but does not feel like she has had a good full bowel movement in over 2 weeks. Denies significant abdominal pain although she describes some bloating. IV line established. CBC with differential obtained showing an 11.6 with hemoglobin 9.1 and platelet count of 440. Chemistries unremarkable. BUN [address] scan of the abdomen pelvis obtained showed no acute intra-abdominal process. I did do a rectal exam on arrival and she had no evidence of impaction. Small amount of brown stool that was Hemoccult positive. She tells me her last colonoscopy was about 2 years ago but states they will not do any more colonoscopies because of her COPD and breathing issues so therefore she has to swallow a camera going forward. We discussed doing a soapsuds enema versus magnesium citrate at home. Patient would prefer to do the magnesium citrate at home. Advised to follow-up with primary care physician within next 3 to 5 days. Patient to return if abdominal pain, fever, vomiting, or condition worsening way. Lab Data Attestation: I reviewed the patient's lab results. Labs: Laboratory Results - last 24 hr 03/03/25 20:38 WBC 11.6 H RBC 3.62 L Hgb 9.1 L Hct 30.3 L MCV 83.7 MCH 25.1 L MCHC 30.0 L RDW Std Deviation 47.9 H RDW Coeff of Naomie 15.7 H Plt Count 440 MPV 8.7 Immature Gran % (Auto) 0.800 Neut % (Auto) 78.0 H Lymph % (Auto) 13.1 L [place] % (Auto) 4.9 Eos % (Auto) 2.8 Baso % (Auto) 0.4 Absolute Neuts (auto) 9.0 H Absolute Lymphs (auto) 1.52 Nucleated RBC % 0 Sodium 142 Potassium 3.9 Chloride 100 Carbon Dioxide 29.2 Anion Gap 13 BUN 7 Creatinine 0.78 Estim Creat Clear Calc 77.19 Est GFR (MDRD) Non-Af 86 BUN/Creatinine Ratio 9.5 L Glucose 158 H Calcium 8.6 Radiography Diagnostic Testing: Clinical Impression(s) from Imaging Studies Abdomen/Pelvis CT 03/03/25 20:15 IMPRESSION: 1. No acute findings in the abdomen and pelvis. 2. Colonic diverticulosis without diverticulitis. 3. Hepatomegaly and diffuse steatosis. Reading Location: REPLACED BY [facility] Discharge Plan Triage Chief Complaint: Constipation ED Provider: Yumi Briseno Dx/Rx/DC Orders Clinical Impression: Constipation Instructions: ED Constipation (Adult) Prescriptions: No Action cyclobenzaprine 10 mg Tablet 10 mg PO TID PRN (Reason: PAIN ) furosemide 40 mg Tablet 40 mg PO DAILY lamotrigine [Lamictal] 200 mg Tablet 400 mg PO QHS prednisone 5 mg Tablet 5 mg PO DAILY acyclovir 400 mg Tablet 400 mg PO DAILY trazodone 100 mg Tablet 200 mg PO QHS PRN (Reason: SLEEP ) pantoprazole [Protonix] 40 mg Tablet,Delayed Release (Dr/Ec) 40 mg PO BID duloxetine 60 mg Capsule,Delayed Release(Dr/Ec) 60 mg PO QHS Rx Instructions: TAKE ONE 30MG CAPSULE AND ONE 60MG CAPSULE TOGETHER ONCE DAILY AT BEDTIME FOR A TOTAL DAILY DOSE OF 90MG. roflumilast 500 mcg Tablet 500 mcg PO DAILY Lactobacillus rhamnosus GG 15 billion cell Capsule, Sprinkle 1 cap PO DAILY Jardiance 25 mg Tablet 25 mg PO DAILY albuterol sulfate [Ventolin HFA] 90 mcg/actuation Hfa Aerosol Inhaler 2 puff INHALATION Q4H PRN (Reason: COPD) buspirone 30 mg tablet 30 mg PO BID duloxetine 30 mg capsule,delayed release(DR/EC) 30 mg PO QHS Rx Instructions: TAKE ONE 30MG CAPSULE AND ONE 60MG CAPSULE TOGETHER ONCE DAILY AT BEDTIME FOR A TOTAL DAILY DOSE OF 90MG. Breztri Aerosphere 160-9-4.8 mcg/actuation HFA aerosol inhaler 2 inh INHALATION BID levothyroxine 50 mcg tablet 50 mcg PO DAILY rosuvastatin 40 mg tablet 40 mg PO QHS temazepam 30 mg capsule 30 mg PO QHS PRN PRN (Reason: night terrors ) diltiazem HCl 180 mg capsule,extended release 24hr 180 mg PO DAILY azelastine 137 mcg (0.1 %) spray,non-aerosol 137 mcg INTRANASAL BID PRN (Reason: dryness) hydroxyzine HCl 10 mg tablet 10 mg PO BID PRN PRN (Reason: anxiety) potassium chloride 20 mEq packet 20 meq PO DAILY 5 Days Qty: 5 0RF cefdinir 300 mg capsule 300 mg PO BID 5 Days Qty: 10 0RF Primary Care Provider: Tino Garcia Referrals: NOT,DEFINED [Non-Staff] - Activity Restrictions/Additional Instructions: Follow-up with your primary care physician within next 3 to 5 days. Print Language: Andorran Disposition Disposition: Home, Self Care
[2025-03-03 20:57] LABS: Absolute Lymphocyte Count 1.52 X10^3/uL (0.83-4.51); Basophil# 0.05 X10^3/uL; Basophil% 0.4 % (0-1); Eosinophil# 0.32 X10^3/uL; Eosinophils% 2.8 % (0-5); Hematocrit 30.3 % (37-47); Hemoglobin 9.1 g/dL (12.0-15.0); Lymphocyte # 1.52 X10^3/ul (0.83-4.51); Lymphocyte % 13.1 % (19-41); Mean Corpuscular Hgb 25.1 pg (27.0-32.0); Mean Corpuscular Volume 83.7 fL (81-99); Mean Platelet Vol. 8.7 fl (6.2-12.0); Monocyte# 0.57 X10^3/uL; Monocyte% 4.9 % (0-10); NRBC Flagged by Analyzer 0 % (0-5); Neutrophil # 9.03 X10^3/uL (2.7-7.7); Platelet Count 440 K/mm3 (150-450); RBC Distribution Width CV 15.7 % (11.6-14.6); RBC Distribution Width SD 47.9 fl (35.1-43.9); Red Blood Count 3.62 M/mm3 (4.2-5.4); White Blood Count 11.6 K/mm3 (4.4-11.0)
[2025-03-03 21:23] LABS: Anion Gap 13 (5-15); BUN 7 mg/dL (4-19); BUN/Creat Ratio 9.5 RATIO (10-20); Calcium,Total 8.6 mg/dL (7.6-11.0); Carbon Dioxide 29.2 mmol/L (21.0-32.0); Chloride 100 mmol/L (98-108); Creatinine, Serum 0.78 mg/dL (0.70-1.20); EST Glomerular Filtration Rate 86 (>60); Estimated Creatinine Clearance 77.19 ml/min (50-250); Glucose 158 mg/dL (70-99); Potassium 3.9 mmol/L (3.3-5.1); Sodium Level 142 mmol/L (133-145)
[2025-03-03 21:58] VITALS: BP 107/63; PULSE 84; RESP 16; TEMP 37.2; O2SAT 97
[2025-03-03] MEDS: Magnesium Citrate 300 ML PO (22:13)
--- NOTE | 2025-03-03 22:19 | ED.RN ---
pt requesting copy of testing done. pt kindly directed to medical records.
== END 2025-03-03 22:20 | disposition home or self-care (01) ==
PROVIDERS: Emergency Provider Emergency Medicine; PCP Student in an Organized Health Care Education/Training Program; Referring Provider Emergency Medicine; Visit Provider Emergency Medicine
DX: K59.00 Constipation, unspecified (principal); Z87.891 Personal history of nicotine dependence
CPT/HCPCS: 74176; 80048; 82274; 85025; 99282; A4216